=== PATIENT | female | born 1965 | race Caucasian/White ===

== ENCOUNTER 2022-01-18 23:28 | Emergency (ER) | payer SELFPAY ==
[2022-01-18 23:34] VITALS: BP 206/108; PULSE 111; RESP 20; TEMP 36.9; O2SAT 97; BMI 22.3
--- NOTE | 2022-01-18 23:50 | W.ED.ABDPA2 ---
Documented by User: WHITNEY Tracy 01/19/22 18:22 HPI - Abdominal Pain General: Chief Complaint: Abdominal Pain Stated Complaint: stomach pain Time Seen by Provider: 01/18/22 23:38 History of Present Illness: Patient is a 56-year-old female who comes to the ED with abdominal pain. Patient states that she has been having upper abdominal pain for the past couple months and is seen her physician and had an outpatient CT scan done and they told her she has a lesion on her liver. PCP is currently getting an outpatient MRI set up for patients abdomen. She reports for the past month she has been having nausea, decreased appetite and abdominal pain is located in the upper abdomen bilaterally. Today she began having pain in the left lower quadrant of her abdomen. Endorses having some nausea but denies any emesis. Reports occasional black stools over the past month. Reports taking Pepto-Bismol on occasion over the past month as well. Denies any constipation or diarrhea and has BMs daily. Patient was diagnosed with hepatitis C 15 years ago. Associated Symptoms: Reports change in stool character (Occasional black stool for the past month.) and nausea; Denies chills, constipation, diarrhea, dysuria, fever(s), hematochezia, hematuria and vomiting Review of Systems Const: Denies: fever(s), chills or fatigue Eyes: Denies: change in vision or eye discomfort ENMT: Denies: throat pain, odynophagia, nasal discharge or nasal congestion Card: Denies: chest pain, palpitations, edema, swelling of feet/ankles, dyspnea on exertion or orthopnea Resp: Denies: dyspnea, productive cough or non-productive cough GI: Reports: abdominal pain, nausea and change in stool character (Occasional black stool for the past month.); Denies: vomiting, diarrhea, constipation or hematochezia : Denies: flank pain, dysuria or hematuria Musc: Denies: neck pain, back pain or extremity swelling Skin/Breast: Denies: rash or new lesions Neuro: Denies: headache(s), numbness in extremities or weakness in extremities PFSH ED PFSH: Medical History Hepatitis C No pertinent family history Surgical History History of bowel resection Physical Exam Const: COMMON NORMALS: patient oriented x3 and alert GENERAL APPEARANCE: cooperative HENMT: COMMON NORMALS: normocephalic HEAD & SCALP: normocephalic MOUTH: Normal oral and palatal mucosa present THROAT: posterior oropharynx normal and uvula midline Neck/C-Spine: COMMON NORMALS: supple GENERAL: Yes normal visual inspection Resp: COMMON NORMALS: normal respiratory effort, No retractions, No use of accessory muscles and clear to auscultation bilaterally AUSCULTATION: clear to auscultation bilaterally Cardio: COMMON NORMALS: regular rate, regular rhythm, S1 normal heart sound present, S2 normal heart sound present, No gallops present (Cardio), No clicks present (Cardio), No murmurs present (Cardio) and Peripheral pulses 2+ throughout RATE: regular rate RHYTHM: regular rhythm HEART SOUNDS: S1 normal heart sound present and S2 normal heart sound present PERIPHERAL PULSES: Peripheral pulses 2+ throughout GI: COMMON NORMALS: Normal to inspection, nondistended, normoactive bowel sounds present, Soft to palpation and no masses PALPATION: Yes Soft to palpation and Yes Tenderness to palpation present (GI) Details: LLQ, LUQ and RUQ : COMMON NORMALS: Yes no CVA tenderness BLADDER/KIDNEY EXAM: Yes no CVA tenderness Back/Pelvis: COMMON NORMALS: no CVA tenderness Extremity: COMMON NORMALS: normal to inspection Neuro: COMMON NORMALS: patient oriented x3 SENSORIUM/ORIENTATION: Yes alert GAIT: Yes Normal gait present Skin: GENERAL SKIN EXAM: dry skin Course Vital Signs: Vital signs: Vital Signs Temperature 98.5 F 01/18/22 23:34 Pulse Rate 102 H 01/19/22 02:52 Respiratory Rate 18 01/19/22 02:52 Blood Pressure 172/87 01/19/22 02:52 Pulse Oximetry 97 01/19/22 02:52 Oxygen Delivery Me thod 01/18/22 23:34 MDM - Abdominal Pain Medical Decision Making Patient is a 56-year-old female who comes to the ED with abdominal pain. Abdominal pain is chronic and has been going on now for several months. She has a history of hepatitis C. She had a CT scan done over a month ago they found some lesions on her liver and she is currently in the process of getting further outpatient imaging done to better evaluate liver lesions. Vitals are stable. Exam of patient shows some generalized tenderness throughout her abdomen. She did not want any pain meds here in the ED. AST 243 and ALT was 138. The rest of CBC and CMP were unremarkable. Hepatitis panel done in patient was hep C antibody positive. CT of abdomen pelvis showed no small bowel obstruction. It showed cirrhotic appearing liver with some ascites and a few 1.1 cm hepatic hypodensity seen. Radiologist recommended reevaluation of liver lesions in 3 3 months with ultrasound or CT. Told patient about CT abdomen findings and recommended that she has another follow-up CT or ultrasound of the liver in the next 3 months. She was diagnosed with abdominal pain, hep C and liver lesions greater than 1 cm. I placed an order with case management for patient referred to Dr. Hurd for hepatitis C management. Return to ED precautions given. She was sent home with a prescription for Zofran to help with nausea. Follow-up with PCP within the next week for reevaluation. Patient understood agree with plan. Lab Data I reviewed the patient's lab results. 01/18/22 23:40 01/18/22 23:40 Labs/Radiology: Radiology Impressions Abdomen/Pelvis CT 01/19/22 00:01 IMPRESSION: 1. No small bowel obstruction, abscess or free air. 2. Markedly diseased appearing/cirrhotic liver with evidence of diffuse 3rd spacing of fluid. This includes mesenteric edema, slight ascites, and likely diffuse bowel wall thickening from mural edema. No strong evidence of colitis or diverticulitis at this time. 3. A few minute hepatic hypodensities are too small to characterize, up to 1.1 cm in size. These may not be simple cysts. These should be followed up in 3 months with ultrasound or CT. 4. Postop and numerous other chronic findings. COMMENTS: Consistent with the [employer]'s Incidental Findings Committee white paper (J Am William Radiol 2018): Any incidental renal lesion less than 1 cm or classified as too small to characterize, or any incidental cystic renal lesion characterized as simple-appearing, is likely benign. No follow-up imaging is recommended for these lesions per consensus recommendations based on imaging criteria. Laboratory Results WBC 5.4 10^3/uL (4.0-10.0) 01/18/22 23:40 RBC 3.98 10^6/uL (4.1-5.3) L 01/18/22 23:40 Hgb 13.5 g/dL (11.5-15.3) 01/18/22 23:40 Hct 40.1 % (37.0-47.0) 01/18/22 23:40 MCV 100.8 fl (81-99) H 01/18/22 23:40 MCH 33.9 pg (28.0-34.0) 01/18/22 23:40 MCHC 33.7 g/dL (30.0-36.0) 01/18/22 23:40 RDW 15.9 % (12.1-15.1) H 01/18/22 23:40 Plt Count 79 10^3/cmm (130-400) L 01/18/22 23:40 MPV 11.5 fL (7.4-10.4) H 01/18/22 23:40 Neut % (Auto) 65.5 % 01/18/22 23:40 Lymph % (Auto) 20.9 % 01/18/22 23:40 [place] % (Auto) 10.2 % 01/18/22 23:40 Eos % (Auto) 2.4 % 01/18/22 23:40 Baso % (Auto) 0.6 % 01/18/22 23:40 Neut # (Auto) 3.54 10^3/uL (1.8-7.7) 01/18/22 23:40 Lymph # (Auto) 1.1 10^3/uL (0.8-4.8) 01/18/22 23:40 [place] # (Auto) 0.6 10^3/uL (0.2-0.9) 01/18/22 23:40 Eos # (Auto) 0.1 10^3/uL (0.0-0.8) 01/18/22 23:40 Baso # (Auto) 0.0 10^3/uL (0.0-0.1) 01/18/22 23:40 Nucleated RBC % (auto) 0 % 01/18/22:40 Nucleated RBCs # 0.0 /100WBC 01/18/22 23:40 Sodium 131 mmol/L (136-145) L 01/18/22 23:40 Potassium 4.2 mmol/L (3.5-5.1) 01/18/22 23:40 Chloride 102 mmol/L (98-107) 01/18/22 23:40 Carbon Dioxide 21 mmol/L (22-29) L 01/18/22 23:40 Anion Gap 12.2 (5-19) 01/18/22 23:40 BUN 7 mg/dL (6-20) 01/18/22 23:40 Creatinine 0.5 mg/dL (0.5-0.9) 01/18/22 23:40 GFR Calculation 126.7 mL/min (90-130) 01/18/22 23:40 Glucose 101 mg/dL (65-115) 01/18/22 23:40 Calculated Osmolality 270 mOsm/kg (285-295) L 01/18/22 23:40 Lactic Acid 1.0 mmol/L (0.5-2.2) 01/18/22 23:40 Calcium 9.3 mg/dL (8.5-10.5) 01/18/22 23:40 Total Bilirubin 1.4 mg/dL (0.15-1.2) H 01/18/22 23:40 AST 243 U/L (0-32) H 01/18/22 23:40 ALT 138 U/L (0-33) H 01/18/22 23:40 Alkaline Phosphatase 195 U/L (35-105) H 01/18/22 23:40 Total Protein 9.2 g/dL (6.6-8.7) H 01/18/22 23:40 Albumin 3.4 g/dL (3.5-5.2) L 01/18/22 23:40 Globulin 5.8 g/dL (1.3-4.6) H 01/18/22 23:40 Lipase 66 U/L (13-60) H 01/18/22 23:40 Urine Color Yellow (Yellow) 01/19/22 00:03 Urine Appearance Clear (CLEAR) 01/19/22 00:03 Urine pH 7 (5-7) 01/19/22 00:03 Ur Specific [place] 1.010 (1.005-1.030) 01/19/22 00:03 Urine Protein Neg (Negative) 01/19/22 00:03 Urine Glucose (UA) Norm (Normal) 01/19/22 00:03 Urine Ketones Negative (Negative) 01/19/22 00:03 Urine Blood Neg (Negative) 01/19/22 00:03 Urine Nitrate Negative (Negative) 01/19/22 00:03 Urine Bilirubin Neg (Negative) 01/19/22 00:03 Urine Urobilinogen Neg mg/dL (Negative) 01/19/22 00:03 Ur Leukocyte Esterase Negative (Negative) 01/19/22 00:03 Hepatitis A IgM Ab Non-reactive (Nonreactive) 01/18/22 23:40 Hep Bs Antigen Non-reactive (Nonreactive) 01/18/22 23:40 Hep Bs Antibody 3.5 (11.5-1000) L 01/18/22 23:40 Hep B Core Total Ab Non-reactive (Nonreactive) 01/18/22 23:40 Hepatitis C Antibody Reactive (Nonreactive) H 01/18/22 23:40 Discharge Plan Discharge Patient Disposition: Home Clinical Impression: Lesion of liver greater than 1 cm in diameter, Hepatitis C antibody test positive Abdominal pain Qualifiers: Abdominal location: generalized Qualified Code(s): R10.84 - Generalized abdominal pain Condition: Stable Prescriptions: New ondansetron 4 mg tablet,disintegrating 4 mg PO Q8H PRN (Reason: nausea and vomiting) Qty: 20 0RF Discharge Orders: Discharge ED (Routine); Ordered 01/19/22 Ordered By: Pedro Hernandez Discharge Diet: Advance as tolerated Discharge Activity: Resume usual activity Patient Instructions: Abdominal Pain (ED) Activity Restrictions/Additional Instructions: Follow-up with medical provider as directed. Talk with your primary care physician to set up a follow-up CT scan or ultrasound in 3 months to recheck liver lesions. Case management should be contacted in the next several days to set up an appointment with specialist. Take medications as prescribed. Return to the ER or your medical provider if condition worsens. Please read and understand discharge instructions. Thank you for choosing [facility] for your healthcare needs today. Please realize this is an emergency room and that we are providing you with a medical screening exam and this may not be complete and all inclusive of all the testing and or work up that you may need to determine your ailment or severity of your illness. It is very important that you follow up as instructed or that you return to the Emergency Department should you have concerns or if your condition changes or worsens in any way. Coding Level of Care Code ED Printing Machine Operator for Chg Fwd Exam Comprehensive Documented by User: Jayme Higuera DO 01/19/22 18:37 HPI - Abdominal Pain General: Chief Complaint: Abdominal Pain Stated Complaint: stomach pain Time Seen by Provider: 01/18/22 23:38 PFSH ED PFSH: Medical History Hepatitis C No pertinent family history Surgical History History of bowel resection Course Vital Signs: Vital signs: Vital Signs Temperature 98.5 F 01/18/22 23:34 Pulse Rate 102 H 01/19/22 02:52 Respiratory Rate 18 01/19/22 02:52 Blood Pressure 172/87 01/19/22 02:52 Pulse Oximetry 97 01/19/22 02:52 Oxygen Delivery Me thod 01/18/22 23:34 MDM - Abdominal Pain Medical Decision Making Patient is a 56-year-old female who comes to the ED with abdominal pain. Abdominal pain is chronic and has been going on now for several months. She has a history of hepatitis C. She had a CT scan done over a month ago they found some lesions on her liver and she is currently in the process of getting further outpatient imaging done to better evaluate liver lesions. Vitals are stable. Exam of patient shows some generalized tenderness throughout her abdomen. She did not want any pain meds here in the ED. AST 243 and ALT was 138. The rest of CBC and CMP were unremarkable. Hepatitis panel done in patient was hep C antibody positive. CT of abdomen pelvis showed no small bowel obstruction. It showed cirrhotic appearing liver with some ascites and a few 1.1 cm hepatic hypodensity seen. Radiologist recommended reevaluation of liver lesions in 3 3 months with ultrasound or CT. Told patient about CT abdomen findings and recommended that she has another follow-up CT or ultrasound of the liver in the next 3 months. She was diagnosed with abdominal pain, hep C and liver lesions greater than 1 cm. I placed an order with case management for patient referred to Dr. Hurd for hepatitis C management. Return to ED precautions given. She was sent home with a prescription for Zofran to help with nausea. Follow-up with PCP within the next week for reevaluation. Patient understood agree with plan. This patient was originally seen by Mr. Mary PA-C.? I agree with his history, evaluation, and treatment. Lab Data 01/18/22 23:40 12 23:40 Labs/Radiology: Radiology Impressions Abdomen/Pelvis CT 01/19/22 00:01 IMPRESSION: 1. No small bowel obstruction, abscess or free air. 2. Markedly diseased appearing/cirrhotic liver with evidence of diffuse 3rd spacing of fluid. This includes mesenteric edema, slight ascites, and likely diffuse bowel wall thickening from mural edema. No strong evidence of colitis or diverticulitis at this time. 3. A few minute hepatic hypodensities are too small to characterize, up to 1.1 cm in size. These may not be simple cysts. These should be followed up in 3 months with ultrasound or CT. 4. Postop and numerous other chronic findings. COMMENTS: Consistent with the [employer]'s Incidental Findings Committee white paper (J Am William Radiol 2018): Any incidental renal lesion less than 1 cm or classified as too small to characterize, or any incidental cystic renal lesion characterized as simple-appearing, is likely benign. No follow-up imaging is recommended for these lesions per consensus recommendations based on imaging criteria. Laboratory Results WBC 5.4 10^3/uL (4.0-10.0) 01/18/22 23:40 RBC 3.98 10^6/uL (4.1-5.3) L 01/18/22 23:40 Hgb 13.5 g/dL (11.5-15.3) 01/18/22 23:40 Hct 40.1 % (37.0-47.0) 01/18/22 23:40 MCV 100.8 fl (81-99) H 01/18/22 23:40 MCH 33.9 pg (28.0-34.0) 01/18/22 23:40 MCHC 33.7 g/dL (30.0-36.0) 01/18/22 23:40 RDW 15.9 % (12.1-15.1) H 01/18/22 23:40 Plt Count 79 10^3/cmm (130-400) L 01/18/22 23:40 MPV 11.5 fL (7.4-10.4) H 01/18/22 23:40 Neut % (Auto) 65.5 % 01/18/22 23:40 Lymph % (Auto) 20.9 % 01/18/22 23:40 [place] % (Auto) 10.2 % 01/18/22 23:40 Eos % (Auto) 2.4 % 01/18/22 23:40 Baso % (Auto) 0.6 % 01/18/22 23:40 Neut # (Auto) 3.54 10^3/uL (1.8-7.7) 01/18/22 23:40 Lymph # (Auto) 1.1 10^3/uL (0.8-4.8) 01/18/22 23:40 [place] # (Auto) 0.6 10^3/uL (0.2-0.9) 01/18/22 23:40 Eos # (Auto) 0.1 10^3/uL (0.0-0.8) 01/18/22 23:40 Baso # (Auto) 0.0 10^3/uL (0.0-0.1) 01/18/22 23:40 Nucleated RBC % (auto) 0 % 01/18/22 23:40 Nucleated RBCs # 0.0 /100WBC 01/18/22 23:40 Sodium 131 mmol/L (136-145) L 01/18/22 23:40 Potassium 4.2 mmol/L (3.5-5.1) 01/18/22 23:40 Chloride 102 mmol/L (98-107) 01/18/22 23:40 Carbon Dioxide 21 mmol/L (22-29) L 01/18/22 23:40 Anion Gap 12.2 (5-19) 01/18/22 23:40 BUN 7 mg/dL (6-20) 01/18/22 23:40 Creatinine 0.5 mg/dL (0.5-0.9) 01/18/22 23:40 GFR Calculation 126.7 mL/min (90-130) 01/18/22 23:40 Glucose 101 mg/dL (65-115) 01/18/22 23:40 Calculated Osmolality 270 mOsm/kg (285-295) L 01/18/22 23:40 Lactic Acid 1.0 mmol/L (0.5-2.2) 01/18/22 23:40 Calcium 9.3 mg/dL (8.5-10.5) 01/18/22 23:40 Total Bilirubin 1.4 mg/dL (0.15-1.2) H 01/18/22 23:40 AST 243 U/L (0-32) H 01/18/22 23:40 ALT 138 U/L (0-33) H 01/18/22 23:40 Alkaline Phosphatase 195 U/L (35-105) H 01/18/22 23:40 Total Protein 9.2 g/dL (6.6-8.7) H 01/18/22 23:40 Albumin 3.4 g/dL (3.5-5.2) L 01/18/22 23:40 Globulin 5.8 g/dL (1.3-4.6) H 01/18/22 23:40 Lipase 66 U/L (13-60) H 01/18/22 23:40 Urine Color Yellow (Yellow) 01/19/22 00:03 Urine Appearance Clear (CLEAR) 01/19/22 00:03 Urine pH 7 (5-7) 01/19/22 00:03 Ur Specific [place] 1.010 (1.005-1.030) 01/19/22 00:03 Urine Protein Neg (Negative) 01/19/22 00:03 Urine Glucose (UA) Norm (Normal) 01/19/22 00:03 Urine Ketones Negative (Negative) 01/19/22 00:03 Urine Blood Neg (Negative) 01/19/22 00:03 Urine Nitrate Negative (Negative) 01/19/22 00:03 Urine Bilirubin Neg (Negative) 01/19/22 00:03 Urine Urobilinogen Neg mg/dL (Negative) 01/19/22 00:03 Ur Leukocyte Esterase Negative (Negative) 01/19/22 00:03 Hepatitis A IgM Ab Non-reactive (Nonreactive) 01/18/22 23:40 Hep Bs Antigen Non-reactive (Nonreactive) 01/18/22:40 Hep Bs Antibody 3.5 (11.5-1000) L 01/18/22 23:40 Hep B Core Total Ab Non-reactive (Nonreactive) 01/18/22 23:40 Hepatitis C Antibody Reactive (Nonreactive) H 01/18/22 23:40 Discharge Plan Discharge Patient Disposition: Home Clinical Impression: Lesion of liver greater than 1 cm in diameter, Hepatitis C antibody test positive Abdominal pain Qualifiers: Abdominal location: generalized Qualified Code(s): R10.84 - Generalized abdominal pain Condition: Stable Prescriptions: New ondansetron 4 mg tablet,disintegrating 4 mg PO Q8H PRN (Reason: nausea and vomiting) Qty: 20 0RF Discharge Orders: Discharge ED (Routine); Ordered 01/19/22 Ordered By: Pedro Hernandez Discharge Diet: Advance as tolerated Discharge Activity: Resume usual activity Patient Instructions: Abdominal Pain (ED) Activity Restrictions/Additional Instructions: Follow-up with medical provider as directed. Talk with your primary care physician to set up a follow-up CT scan or ultrasound in 3 months to recheck liver lesions. Case management should be contacted in the next several days to set up an appointment with specialist. Take medications as prescribed. Return to the ER or your medical provider if condition worsens. Please read and understand discharge instructions. Thank you for choosing [facility] for your healthcare needs today. Please realize this is an emergency room and that we are providing you with a medical screening exam and this may not be complete and all inclusive of all the testing and or work up that you may need to determine your ailment or severity of your illness. It is very important that you follow up as instructed or that you return to the Emergency Department should you have concerns or if your condition changes or worsens in any way. Coding Level of Care Code ED Printing Machine Operator for Yue Lora Exam Comprehensive
[2022-01-18 23:58] LABS: Basophils % 0.6 %; Eosinophils # 0.1 10^3/uL (0.0-0.8); Eosinophils % 2.4 %; Hematocrit 40.1 % (37.0-47.0); Hemoglobin 13.5 g/dL (11.5-15.3); Lymphocytes # 1.1 10^3/uL (0.8-4.8); Lymphocytes % 20.9 %; Mean Corpuscular HGB Conc 33.7 g/dL (30.0-36.0); Mean Corpuscular Hemoglobin 33.9 pg (28.0-34.0); Mean Corpuscular Volume 100.8 fl (81-99); Mean Platelet Volume 11.5 fL (7.4-10.4); Monocytes # 0.6 10^3/uL (0.2-0.9); Monocytes % 10.2 %; Neutrophils # 3.54 10^3/uL (1.8-7.7); Neutrophils % 65.5 %; Nucleated Red Blood Cells % 0 %; Platelet Count 79 10^3/cmm (130-400); Red Blood Count 3.98 10^6/uL (4.1-5.3); Red Cell Distribution Width 15.9 % (12.1-15.1); White Blood Count 5.4 10^3/uL (4.0-10.0)
--- NOTE | 2022-01-19 00:01 | CTR_ITS ---
PROCEDURE INFORMATION: Exam: CT Abdomen And Pelvis With Contrast Exam date and time: 01/19/2022 12:09 AM Age: 56 years old Clinical indication: Abdominal pain; Additional info: Upper and llq abdominal pain w/ nausea TECHNIQUE: Imaging protocol: Computed tomography of the abdomen and pelvis with contrast. Radiation optimization: All CT scans at this facility use at least one of these dose optimization techniques: automated exposure control; mA and/or kV adjustment per patient size (includes targeted exams where dose is matched to clinical indication); or iterative reconstruction. Contrast material: OMNIPAQUE 350; Contrast volume: 100 ml; Contrast route: INTRAVENOUS (IV); COMPARISON: CT abdomen pelvis w con* [id number] 02/05/2015 6:22 PM RADIATION DOSE METRICS: Total DLP (mGy-cm): 346.32 FINDINGS: Lungs: The visualized lung bases are clear. Diaphragm: Minute hiatal hernia. Liver: The liver is large, cirrhotic, and very fatty replaced. It is quite heterogenous. It contains a few small hypodense foci up to about 1.1 cm in size. These should be followed up. These are new from 02/05/2015. Gallbladder and bile ducts: No calcified gallstones or biliary dilation identified. Pancreas: Unremarkable with no suspicious mass. No ductal dilation. Spleen: The spleen is not enlarged. No suspicious enhancing mass is noted. Adrenal glands: Normal. No mass. Kidneys and ureters: The right kidney shows a few tiny cysts up to about 10 mm. Stomach and bowel: Right lower quadrant bowel postop changes. No small bowel obstruction, abscess or free air. Appendix: No evidence of appendicitis. Intraperitoneal space: Small pelvic free fluid. Mild diffuse mesenteric edema is present with some mesenteric vascular engorgement. Abdominal varices are visualized. Vasculature: Severe diffuse atherosclerotic calcification. Diffuse varices in the abdomen and pelvis. Lymph nodes: No enlarged lymph nodes. Urinary bladder: Unremarkable as visualized. Reproductive: A few calcified uterine fibroids measure up to about 1 cm. Bones/joints: Slight mid lumbar dextroscoliosis. Advanced L5-S1 DDD. Soft tissues: No acute or suspicious finding noted. CT/CT abdomen pelvis w con* [id number] IMPRESSION: 1. No small bowel obstruction, abscess or free air. 2. Markedly diseased appearing/cirrhotic liver with evidence of diffuse 3rd spacing of fluid. This includes mesenteric edema, slight ascites, and likely diffuse bowel wall thickening from mural edema. No strong evidence of colitis or diverticulitis at this time. 3. A few minute hepatic hypodensities are too small to characterize, up to 1.1 cm in size. These may not be simple cysts. These should be followed up in 3 months with ultrasound or CT. 4. Postop and numerous other chronic findings. COMMENTS: Consistent with the [employer]'s Incidental Findings Committee white paper (J Am William Radiol 2018): Any incidental renal lesion less than 1 cm or classified as too small to characterize, or any incidental cystic renal lesion characterized as simple-appearing, is likely benign. No follow-up imaging is recommended for these lesions per consensus recommendations based on imaging criteria.
[2022-01-19] MEDS: sodium chloride 0.9% 500 ML 999 ML IV (00:09)
[2022-01-19] MEDS: iohexol 350 mg/mL 500 mL Btl (per mL) IV (00:10)
[2022-01-19 00:11] LABS: Add Urine Microscopic? NO; Charge for UA Resulting for Rev
[2022-01-19 00:12] LABS: Alanine Aminotransferase 138 U/L (0-33); Albumin Level 3.4 g/dL (3.5-5.2); Alkaline Phosphatase 195 U/L (35-105); Anion Gap 12.2 (5-19); Aspartate Amino Transferase 243 U/L (0-32); Blood Urea Nitrogen 7 mg/dL (6-20); Calcium 9.3 mg/dL (8.5-10.5); Carbon Dioxide 21 mmol/L (22-29); Chloride 102 mmol/L (98-107); Globulin 5.8 g/dL (1.3-4.6); Glomerular Filtration Rate 126.7 mL/min (90-130); Glucose 101 mg/dL (65-115); Lipase 66 U/L (13-60); Osmolality Calculated 270 mOsm/kg (285-295); Potassium 4.2 mmol/L (3.5-5.1); Sodium 131 mmol/L (136-145); Total Bilirubin 1.4 mg/dL (0.15-1.2); Total Protein 9.2 g/dL (6.6-8.7)
[2022-01-19 00:21] LABS: Bilirubin Urine Neg (Negative); Blood Urine Neg (Negative); Glucose Urine UA Norm (Normal); Ketones Urine Negative (Negative); Leukocyte Esterase Urine Negative (Negative); Nitrate Urine Negative (Negative); Protein Urine Neg (Negative); Urine Appearance Clear (CLEAR); Urine Color Yellow (Yellow); Urobilinogen Urine Neg (Negative); pH Urine 7 (5-7)
[2022-01-19] MEDS: hyDRALAzine 25 mg Tablet PO (01:44)
[2022-01-19 01:52] LABS: Hepatitis A Antibody IgM Non-Reactive (Nonreactive); Hepatitis B Core AB, Total Non-Reactive (Nonreactive); Hepatitis B Surface AB 3.5 (11.5-1000); Hepatitis B Surface Antigen Non-Reactive (Nonreactive)
[2022-01-19 02:46] LABS: Hepatitis C Virus Antibody Reactive (Nonreactive)
[2022-01-19 02:52] VITALS: BP 172/87; PULSE 102; RESP 18; O2SAT 97
--- NOTE | 2022-01-20 13:11 | DCPLANNER ---
clinical quality manager had message to refer patient to Dr. Hurd, he no longer works for [employer]. The physician has opened up his own clinic, high risk case manager offered to refer patient to his clinic in [facility]. Patient stated that she would follow up with her primary care physician.
[2022-01-21 22:30] LABS: HEP C RNA Viral Load Quant 208000 IU/mL (NOT DETECTED); HEP C RNA Viral Load Quant 5.32 Log IU/mL (NOT DETECTED)
== END 2022-01-19 02:54 | disposition home or self-care (01) ==
PROVIDERS: Emergency Provider Physician Assistant
DX: R10.84 Generalized abdominal pain (principal); K76.9 Liver disease, unspecified; B19.20 Unspecified viral hepatitis C without hepatic coma
CPT/HCPCS: 74177; 80053; 81003; 83605; 83690; 85025; 86705; 86706; 86709; 86803; 87340; 87522; 96360; 96361; 99285; J7040; Q9967

== ENCOUNTER 2023-06-12 14:35 | Emergency (ER) | payer BC, MEDICAID, SELFPAY ==
[2023-06-12] VITALS (10 sets, daily range): BP systolic 125–151; BP diastolic 80–108; PULSE 66–103; RESP 16–17; TEMP 36.7; O2SAT 92–97; BMI 23.0
--- NOTE | 2023-06-12 14:58 | XRR_ITS ---
PROCEDURE INFORMATION: Exam: XR Chest Exam date and time: 06/12/2023 7:54 PM Age: 58 years old Clinical indication: Shortness of breath; Patient HX: SOB; Fluid retention; Cirrohsis TECHNIQUE: Imaging protocol: Radiologic exam of the chest. Views: 1 view. COMPARISON: CR XR chest 1V [id number] 02/27/2017 3:59 PM FINDINGS: Lungs: Unremarkable. No consolidation. Pleural spaces: Unremarkable. No pleural effusion. No pneumothorax. Heart/Mediastinum: Unremarkable. No cardiomegaly. Bones/joints: Unremarkable. XR/XR chest 1V portable [id number] IMPRESSION: No acute findings.
[2023-06-12 15:33] LABS: Basophils % 0.4 %; Eosinophils % 0.5 %; Hematocrit 36.7 % (36-47); Lymphocytes # 1.1 10^3/uL (0.8-4.8); Mean Corpuscular HGB Conc 34.1 g/dL (30-55); Mean Corpuscular Hemoglobin 32.7 pg (27-33); Mean Corpuscular Volume 96.1 fl (85-98); Monocytes # 0.6 10^3/uL (0.2-0.9); Monocytes % 7.7 %; Neutrophils # 5.64 10^3/uL (1.8-7.7); Neutrophils % 76.1 %; Nucleated Red Blood Cells % 0 %; Platelet Count 143 10^3/cmm (157-399); Red Blood Count 3.82 10^6/uL (3.85-5.65); Red Cell Distribution Width 17.8 % (12.1-15.1); White Blood Count 7.41 10^3/uL (3.29-11.43)
[2023-06-12 15:55] LABS: Alanine Aminotransferase 47 U/L (0-33); Alkaline Phosphatase 122 U/L (35-105); Anion Gap 12.8 (5-19); Aspartate Amino Transferase 73 U/L (0-32); Blood Urea Nitrogen 10 mg/dL (8-23); Calcium 8.7 mg/dL (8.5-10.5); Carbon Dioxide 22 mmol/L (22-29); Chloride 104 mmol/L (98-107); Globulin 5.3 g/dL (1.3-4.6); Glomerular Filtration Rate 73.2 mL/min (90-130); Glucose 110 mg/dL (65-115); Osmolality Calculated 278 mOsm/kg (285-295); Potassium 4.8 mmol/L (3.5-5.1); Sodium 134 mmol/L (136-145); Total Bilirubin 1.3 mg/dL (0.15-1.2); Total Protein 8.3 g/dL (6.6-8.7)
--- NOTE | 2023-06-12 18:41 | ED_ITS ---
HPI - Abdominal Pain 2 General: Chief Complaint: Abdominal Pain Stated Complaint: fluid build up Time Seen by Provider: 06/12/23 18:36 History of Present Illness: Patient presents to the ER with complaints of abdominal pain for a while but worsening over the last 2 to 3 days. Patient had a therapeutic paracentesis done at [facility] 2 days ago and she which she thought would help with the abdominal pain but has not. Patient has had diarrhea over the last 12 hours. As well as nausea and vomiting. Patient's pain is in the upper quadrants of the abdomen. Patient said the fluid did not look infected per the doctor doing the procedure. Patient has no pain medicine at home. Patient has a history of cirrhosis of the liver and hepatitis C, Review of Systems 2 General: Reports: 10 or more systems reviewed and unremarkable except in HPI and below PFSH ED 2 PFSH: Medical History Hepatitis C No pertinent family history Surgical History History of bowel resection Physical Exam 2 Const: COMMON NORMALS: no acute distress, average body habitus, patient oriented x3, no limitations, healthy appearing, alert and well nourished HENMT: COMMON NORMALS: normocephalic, atraumatic, hearing grossly normal bilaterally, Normal external nose present, moist oral mucous membranes and oropharynx normal HEAD & SCALP: normocephalic and atraumatic NOSE: Normal external nose present Neck/C-Spine: COMMON NORMALS: no JVD Chest: COMMONS NORMALS: normal inspection of the chest and normal palpation of entire chest wall Resp: COMMON NORMALS: normal respiratory effort, No retractions, No use of accessory muscles and clear to auscultation bilaterally AUSCULTATION: clear to auscultation bilaterally Cardio: COMMON NORMALS: no JVD, regular rate, regular rhythm, S1 normal heart sound present, S2 normal heart sound present, No gallops present (Cardio), No clicks present (Cardio), No murmurs present (Cardio) and No rub (Cardio) R ATE: regular rate RHYTHM: regular rhythm HEART SOUNDS: S1 normal heart sound present and S2 normal heart sound present GI: OTHER: Firm to palpate, tender over upper quadrants bilaterally, good bowel sounds present in all 4 quadrants, Neuro: COMMON NORMALS: patient oriented x3 SENSORIUM/ORIENTATION: Yes alert Course 2 Vital Signs: Vital signs: Vital Signs Temperature 98.1 F 06/12/23 14:53 Pulse Rate 103 H 06/12/23 18:38 Respiratory Rate 16 06/12/23 21:05 Blood Pressure 143/108 06/12/23 18:38 Pulse Oximetry 92 06/12/23 18:38 Oxygen Delivery Me thod Room Air 06/12/23 18:38 MDM - Abdominal Pain Medical Decision Making Lab work was obtained WBC 7.4, hemoglobin 12.5, hematocrit 36.7, metabolic panel benign except AST 73 ALT 47 alk phos 122, lipase 33, patient was given 60 mg of Toradol, 8 mg of morphine, 5 mg of oxycodone for pain control. Patient will be sent home with oxycodone 5 mg for pain control. Patient states that [facility] is working on setting her up with interventional radiology here to have her abdomen drained routinely. Patient be given 2 oxycodone fives to go home with until she can pick the others up at the pharmacy tomorrow. Differential Diagnosis Likely abdominal pain; Unlikely acute appendicitis, calculus of kidney, constipation, diverticulitis, endometriosis, gastroenteritis, pancreatitis or small bowel obstruction Medical Records I reviewed the patient's medical records. Lab Data I reviewed the patient's lab results. 06/12/23 15:21 06/12/23 15:21 Labs/Radiology: Radiology Impressions Chest X-Ray 06/12/23 14:58 IMPRESSION: No acute findings. Laboratory Results WBC 7.41 10^3/uL (3.29-11.43) 06/12/23 15:21 RBC 3.82 10^6/uL (3.85-5.65) L 06/12/23 15:21 Hgb 12.50 g/dL (11.27-16.99) 06/12/23 15:21 Hct 36.7 % (36-47) 06/12/23 15:21 MCV 96.1 fl (85-98) 06/12/23 15:21 MCH 32.7 pg (27-33) 06/12/23 15:21 MCHC 34.1 g/dL (30-55) 06/12/23 15:21 RDW 17.8 % (12.1-15.1) H 06/12/23 15:21 Plt Count 143 10^3/cmm (157-399) L 06/12/23 15:21 MPV 9.0 fL (7.4-10.4) 06/12/23 15:21 Neut % (Auto) 76.1 % 06/12/23 15:21 Lymph % (Auto) 15.0 % 06/12/23 15:21 Faulk % (Auto) 7.7 % 06/12/23 15:21 Eos % (Auto) 0.5 % 06/12/23 15:21 Baso % (Auto) 0.4 % 06/12/23 15:21 Neut # (Auto) 5.64 10^3/uL (1.8-7.7) 06/12/23 15:21 Lymph # (Auto) 1.1 10^3/uL (0.8-4.8) 06/12/23 15:21 Faulk # (Auto) 0.6 10^3/uL (0.2-0.9) 06/12/23 15:21 Eos # (Auto) 0.0 10^3/uL (0.0-0.8) 06/12/23 15:21 Baso # (Auto) 0.0 10^3/uL (0.0-0.1) 06/12/23 15:21 Nucleated RBC % (auto) 0 % 06/12/23 15:21 Nucleated RBCs # 0.0 /100WBC 06/12/23 15:21 Sodium 134 mmol/L (136-145) L 06/12/23 15:21 Potassium 4.8 mmol/L (3.5-5.1) 06/12/23 15:21 Chloride 104 mmol/L (98-107) 06/12/23 15:21 Carbon Dioxide 22 mmol/L (22-29) 06/12/23 15:21 Anion Gap 12.8 (5-19) 06/12/23 15:21 BUN 10 mg/dL (8-23) 06/12/23 15:21 Creatinine 0.8 mg/dL (0.5-0.9) 06/12/23 15:21 GFR Calculation 73.2 mL/min (90-130) L 06/12/23 15:21 Glucose 110 mg/dL (65-115) 06/12/23 15:21 Calculated Osmolality 278 mOsm/kg (285-295) L 06/12/23 15:21 Calcium 8.7 mg/dL (8.5-10.5) 06/12/23 15:21 Magnesium 2.2 mg/dL (1.7-2.3) 06/12/23 15:21 Total Bilirubin 1.3 mg/dL (0.15-1.2) H 06/12/23 15:21 AST 73 U/L (0-32) H 06/12/23 15:21 ALT 47 U/L (0-33) H 06/12/23 15:21 Alkaline Phosphatase 122 U/L (35-105) H 06/12/23 15:21 Total Protein 8.3 g/dL (6.6-8.7) 06/12/23 15:21 Albumin 3.0 g/dL (3.5-5.2) L 06/12/23 15:21 Globulin 5.3 g/dL (1.3-4.6) H 06/12/23 15:21 Lipase 33 U/L (13-60) 06/12/23 15:21 All radiology interpretation(s) finalized by discharge Discharge Plan Discharge Patient Disposition: Home Clinical Impression: Gastroenteritis Abdominal pain Qualifiers: Abdominal location: generalized Qualified Code(s): R10.84 - Generalized abdominal pain Abdominal ascites Qualifiers: Ascites type: other type Qualified Code(s): R18.8 - Other ascites Condition: Stable Prescriptions: New oxycodone 5 mg tablet 5 mg PO TID PRN (Reason: pain) Qty: 14 0RF ondansetron HCl 4 mg tablet 4 mg PO Q8H PRN (Reason: nausea and vomiting) Qty: 14 0RF No Action ondansetron 4 mg tablet,disintegrating 4 mg PO Q8H PRN (Reason: nausea and vomiting) Qty: 20 0RF Discharge Orders: Discharge ED (Routine); Ordered 06/12/23 Ordered By: Checo Mendoza Referrals: Vladimir Urena [Primary Care Provider] - 1 week Patient Instructions: Ascites, Gastroenteritis (ED), Abdominal Pain (ED) Activity Restrictions/Additional Instructions: Please take your medicine as directed for pain. Please make for sure you get a follow-u to have your abdomen drained sometime next week. If your symptoms worsen or return please feel free to return to the ER. 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
[2023-06-12] MEDS: ondansetron 4 MG Tablet PO (18:51)
[2023-06-12] MEDS: ketorolac 60 mg/2 mL INJ IM (18:51)
[2023-06-12 19:06] LABS: Lipase 33 U/L (13-60); Magnesium 2.2 mg/dL (1.7-2.3)
[2023-06-12] MEDS: oxyCODONE 5 mg IR Tab/Cap PO (20:59)
[2023-06-12] MEDS: morphine 4 mg/mL SDV 1 mL IM (21:05)
== END 2023-06-12 22:05 | disposition home or self-care (01) ==
PROVIDERS: Physician Assistant; Emergency Provider Emergency Medicine; PCP Family Medicine
DX: K52.9 Noninfective gastroenteritis and colitis, unspecified (principal); R18.8 Other ascites; R10.84 Generalized abdominal pain; Z86.19 Personal history of other infectious and parasitic diseases
CPT/HCPCS: 36415; 71045; 80053; 83690; 83735; 85025; 96372; 99284; J1885; J2270; Q0162

== ENCOUNTER → 2023-06-18 12:00 | Day surgery (SDC) | payer BC, MEDICAID, SELFPAY ==
--- NOTE | 2023-06-18 12:24 | US_ITS ---
WS: [email or web address] ULTRASOUND-GUIDED PARACENTESIS CLINICAL INFORMATION: ascities COMPARISON: None. Procedure Informed consent: The risks, benefits, and alternatives of the procedure were discussed with the chele ent. Verbal and written consent was obtained. Timeout: A timeout was performed to confirm the correct patient, procedure, and site. Preparation: A suitable skin site was identified. The patient was prepped and draped in usual sterile fashion. Lidocaine 1% was used for local anesthesia. Catheter: 4 Bulgarian One-step Yueh catheter. Side: RIGHT lower quadrant. Fluid Volume: 6500 ml Color: Yellow DISPOSITION: 50 cc sent to the laboratory for requested diagnostic test. Complications: None. Patient disposition: Discharged from the department in stable condition. US/US paracentesis abd w [id number] IMPRESSION: Uncomplicated ultrasound-guided paracentesis. Removal of 6500 cc
[2023-06-18 12:33] VITALS: BP 140/87; PULSE 82; RESP 18; TEMP 36.4; O2SAT 99
[2023-06-18 13:55] LABS: Apprearance, Body Fluid CLOUDY; Color, Body Fluid YELLOW; PATH Referral YES
[2023-06-18 13:56] LABS: Body Fluid Polynuclear #Cells 0.024; Body Fluid WBC 180 /uL; Fluid Laterality PERITONEAL FLUID; Monocytes # Body Fluid 0.156; RBC, Body Fluid 0 10^3/uL
[2023-06-18 13:58] LABS: Cyto Order Verification Order Verified
[2023-06-18] MEDS: albumin 50 G/200 ML BAG 60 G IV (14:11)
[2023-06-18 14:26] VITALS: BMI 24.6
[2023-06-18 14:30] LABS: Albumin Body Fluid 0.8 g/dL; Total Protein Body Fluid 1.7 g/dL
== END ==
LOC: GILAB 12:01
PROVIDERS: Radiology Neuroradiology; PCP Family Medicine; Visit Provider Nurse Practitioner Family
PROC: (CPT 49082; principal; 2023-06-18 13:00)
DX: R18.8 Other ascites (principal)
CPT/HCPCS: 49083; 80503; 82042; 84157; 87070; 87075; 87205; 88112; 89050; 96365; P9046

== ENCOUNTER 2023-06-24 09:12 | Day surgery (SDC) | payer BC, MEDICAID, SELFPAY ==
[2023-06-24 09:20] VITALS: BP 123/80; PULSE 86; RESP 18; TEMP 36.4; O2SAT 98
--- NOTE | 2023-06-24 09:54 | US_ITS ---
WS: [email or web address] ULTRASOUND-GUIDED THERAPEUTIC AND DIAGNOSTIC PARACENTESIS Procedure, risks, and complications have been explained to the patient. Consent is obtained. Utilizing aseptic technique and 1% buffered lidocaine, a small dermatome was made through which a 5 F rench Yueh catheter was inserted. Approximately 5700 ml of clear peritoneal fluid was obtained witho ut difficulty. No complications encountered. Ascites collected for analysis as requested. US/US paracentesis abd w [id number] IMPRESSION: Uncomplicated paracentesis yielding 5700 ml of peritoneal fluid.
[2023-06-24 10:14] VITALS: BMI 24.6
[2023-06-24] MEDS: albumin 50 G/200 ML BAG 60 G IV (10:54)
[2023-06-24 11:03] LABS: Cyto Order Verification Order Verified
[2023-06-24 11:06] LABS: Body Fluid Polynuclear #Cells 0.037; Body Fluid WBC 176 /uL; Monocytes # Body Fluid 0.139; Mononuclear %, Pleural Fluid 79 %; Polynuclear Cells, Pleural % 21 %; RBC, Body Fluid 0 10^3/uL
[2023-06-24 11:20] LABS: Apprearance, Body Fluid CLOUDY; Color, Body Fluid PALE YELLOW; PATH Referal YES
[2023-06-24 11:21] LABS: Fluid Laterality PERITONEAL FLUID
[2023-06-24 11:46] LABS: Albumin Body Fluid 0.9 g/dL; Total Protein Body Fluid 1.7 g/dL
== END 2023-06-24 11:19 | disposition home or self-care (01) ==
LOC: GILAB 09:12
PROVIDERS: Radiology Diagnostic Radiology; PCP Family Medicine; Visit Provider Nurse Practitioner Family
PROC: (CPT 49082; principal; 2023-06-24 13:00)
DX: R18.8 Other ascites (principal)
CPT/HCPCS: 49083; 80503; 82042; 84157; 87070; 87075; 87205; 88112; 89050; 96365; P9046

== ENCOUNTER 2023-07-02 12:26 | Day surgery (SDC) | payer BC, MEDICAID, SELFPAY ==
--- NOTE | 2023-07-02 12:30 | US_ITS ---
WS: [email or web address] ULTRASOUND-GUIDED PARACENTESIS CLINICAL INFORMATION: ascities COMPARISON: None. Procedure Informed consent: The risks, benefits, and alternatives of the procedure were discussed with the chele ent. Verbal and written consent was obtained. Timeout: A timeout was performed to confirm the correct patient, procedure, and site. Preparation: A suitable skin site was identified. The patient was prepped and draped in usual sterile fashion. Lidocaine 1% was used for local anesthesia. Catheter: 4 Kinyarwanda One-step Yueh catheter. Side: RIGHT Lower quadrant. Fluid Volume: 4200 ml Color: YELLOW DISPOSITION: Discarded safely. Complications: None. Patient disposition: Discharged from the department in stable condition. US/US paracentesis abd w [id number] IMPRESSION: Uncomplicated ultrasound-guided paracentesis. Removal of 4200cc
[2023-07-02 12:46] VITALS: BP 136/78; PULSE 78; RESP 16; TEMP 36.1; O2SAT 98
[2023-07-02 15:30] LABS: Mononuclear %, Pleural Fluid 81 %; Polynuclear Cells, Pleural % 19 %
[2023-07-02 15:37] LABS: Total Protein Body Fluid 1.9 g/dL
[2023-07-02 16:19] LABS: Appearance, Pleural Fluid CLOUDY (CLEAR); Color, Pleural Fluid Pale Yellow (Pale Yellow); Cyto Order Verification Order Verified
[2023-07-02 16:20] LABS: PATH Referal YES
== END 2023-07-02 14:43 | disposition home or self-care (01) ==
PROVIDERS: Radiology Neuroradiology; PCP Family Medicine; Visit Provider Nurse Practitioner Family
PROC: (CPT 49082; principal; 2023-07-02 13:30)
DX: R18.8 Other ascites (principal)
CPT/HCPCS: 49083; 80503; 82042; 84157; 87070; 87075; 87205; 88112; 89050

== ENCOUNTER 2023-07-09 11:51 | Day surgery (SDC) | payer BC, MEDICAID, SELFPAY ==
[2023-07-09 12:17] VITALS: BP 126/69; PULSE 80; RESP 16; TEMP 36.3; O2SAT 96
[2023-07-09 12:22] VITALS: BMI 19.7
--- NOTE | 2023-07-09 12:25 | US_ITS ---
WS: [email or web address] ULTRASOUND-GUIDED THERAPEUTIC AND DIAGNOSTIC PARACENTESIS Procedure, risks, and complications have been explained to the patient. Consent is obtained. Utilizing aseptic technique and 1% buffered lidocaine, a small dermatome was made through which a 5 F rench Yueh catheter was inserted. Approximately 4600 ml of clear peritoneal fluid was obtained witho ut difficulty. No complications encountered. Fluid specimen collected for analysis as requested. US/US paracentesis abd w [id number] IMPRESSION: Uncomplicated paracentesis yielding 4600 ml of peritoneal fluid.
[2023-07-09 14:10] LABS: Mononuclear #, Pertinoneal Fl 0.144 10^3/uL; Polynuclear # Cells, Perit 0.035 10^3/uL; RBC Pertioneal Fluid 0 10^3/uL; WBC Peritoneal Fluid 179 /uL
[2023-07-09 14:12] LABS: Appearance, Peritoneal Fluid Cloudy (Clear); Color, Peritoneal Fluid Pale Yellow (Pale Yellow); Pathology Referral Yes
[2023-07-09 14:29] LABS: Albumin Body Fluid 0.7 g/dL; Total Protein Body Fluid 1.5 g/dL
== END 2023-07-09 13:46 | disposition home or self-care (01) ==
LOC: GILAB 11:51
PROVIDERS: Radiology Diagnostic Radiology; PCP Family Medicine; Visit Provider Nurse Practitioner Family
PROC: (CPT 49082; principal; 2023-07-09 13:00)
DX: K70.31 Alcoholic cirrhosis of liver with ascites (principal)
CPT/HCPCS: 49083; 80503; 82042; 84157; 87070; 87075; 87205; 88112; 89050

== ENCOUNTER 2023-07-23 11:49 | Day surgery (SDC) | payer BC, MEDICAID, SELFPAY ==
--- NOTE | 2023-07-23 12:00 | US_ITS ---
WS: [email or web address] ULTRASOUND-GUIDED THERAPEUTIC AND DIAGNOSTIC PARACENTESIS Procedure, risks, and complications have been explained to the patient. Consent is obtained. Utilizing aseptic technique and 1% buffered lidocaine, a small dermatome was made through which a 5 F rench Yueh catheter was inserted. Approximately 6500 ml of clear peritoneal fluid was obtained witho ut difficulty. No complications encountered. US/US paracentesis abd w [id number] IMPRESSION: Uncomplicated paracentesis yielding 6500 ml of peritoneal fluid.
[2023-07-23 12:01] VITALS: BP 124/82; PULSE 87; RESP 16; TEMP 36.3; O2SAT 100
[2023-07-23 13:34] LABS: Mononuclear #, Pertinoneal Fl 0.133 10^3/uL; Polynuclear # Cells, Perit 0.032 10^3/uL; RBC Pertioneal Fluid 0 10^3/uL; WBC Peritoneal Fluid 165 /uL
[2023-07-23 13:51] LABS: Albumin Peritoneal Fluid 0.6 g/dL; Appearance, Peritoneal Fluid Cloudy (Clear); Color, Peritoneal Fluid Pale Yellow (Pale Yellow); Total Protein Body Fluid 1.5 g/dL
[2023-07-23] MEDS: albumin 50 G/200 ML BAG 60 G IV (13:59)
[2023-07-23 14:03] LABS: Cyto Order Verification Order Verified
== END 2023-07-23 14:22 | disposition home or self-care (01) ==
LOC: GILAB 11:50
PROVIDERS: Radiology Diagnostic Radiology; PCP Family Medicine; Visit Provider Nurse Practitioner Family
PROC: (CPT 49082; principal; 2023-07-23 13:00)
DX: K74.60 Unspecified cirrhosis of liver (principal); R18.8 Other ascites
CPT/HCPCS: 49083; 80503; 82042; 84157; 87075; 88112; 89050; 96365; P9046

== ENCOUNTER 2023-08-06 11:37 | Day surgery (SDC) | payer BC, MEDICAID, SELFPAY ==
[2023-08-06 11:49] VITALS: BP 128/75; PULSE 80; RESP 16; TEMP 36.1; O2SAT 97; BMI 20.5
--- NOTE | 2023-08-06 11:50 | US_ITS ---
WS: [email or web address] ULTRASOUND-GUIDED THERAPEUTIC AND DIAGNOSTIC PARACENTESIS Procedure, risks, and complications have been explained to the patient. Consent is obtained. Utilizing aseptic technique and 1% buffered lidocaine, a small dermatome was made through which a 5 F rench Yueh catheter was inserted. Approximately 6400 ml of clear yellow peritoneal fluid was obtained without difficulty. No complications encountered. US/US paracentesis abd w [id number] IMPRESSION: Uncomplicated paracentesis yielding 6400 ml of peritoneal fluid. Peritoneal fluid specimen collected for analysis.
[2023-08-06] MEDS: albumin 50 G/200 ML BAG 60 G IV (12:50)
[2023-08-06 12:55] LABS: Mononuclear #, Pertinoneal Fl 0.098 10^3/uL; Polynuclear # Cells, Perit 0.032 10^3/uL; RBC Pertioneal Fluid 0 10^3/uL; WBC Peritoneal Fluid 130 /uL
[2023-08-06 12:56] LABS: Appearance, Peritoneal Fluid Cloudy (Clear); Color, Peritoneal Fluid Pale Yellow (Pale Yellow); Cyto Order Verification Order Verified; Pathology Referral Yes
[2023-08-06 13:22] LABS: Albumin Peritoneal Fluid 0.6 g/dL; Total Protein Peritoneal Fluid 1.3 g/dL
== END 2023-08-06 13:11 | disposition home or self-care (01) ==
LOC: GILAB 11:38
PROVIDERS: Radiology Diagnostic Radiology; PCP Family Medicine; Visit Provider Nurse Practitioner Family
PROC: (CPT 49082; principal; 2023-08-06 13:00)
DX: R18.8 Other ascites (principal)
CPT/HCPCS: 49083; 80503; 82042; 84157; 87075; 88112; 89050; 96365; P9046

== ENCOUNTER → 2023-08-20 11:55 | Day surgery (SDC) | payer BC, MEDICAID, SELFPAY ==
[2023-08-20 12:03] VITALS: BP 133/88; PULSE 85; RESP 16; TEMP 36.2; O2SAT 99
--- NOTE | 2023-08-20 12:43 | US_ITS ---
WS: [email or web address] ULTRASOUND-GUIDED PARACENTESIS CLINICAL INFORMATION: ascites COMPARISON: None. Procedure Informed consent: The risks, benefits, and alternatives of the procedure were discussed with the chele ent. Verbal and written consent was obtained. Timeout: A timeout was performed to confirm the correct patient, procedure, and site. Preparation: A suitable skin site was identified. The patient was prepped and draped in usual sterile fashion. Lidocaine 1% was used for local anesthesia. Catheter: 4 Micronesian One-step Yueh catheter. Side: RIGHT lower quadrant. Fluid Volume: 6000 ml Color: Clear yellow DISPOSITION: Discarded safely. Complications: None. Patient disposition: Discharged from the department in stable condition. US/US paracentesis abd w [id number] IMPRESSION: Uncomplicated ultrasound-guided paracentesis. Removal of 6000 cc
[2023-08-20 13:12] LABS: Cyto Order Verification Order Verified
[2023-08-20 13:38] LABS: Albumin Peritoneal Fluid 0.8 g/dL; Total Protein Peritoneal Fluid 1.5 g/dL
[2023-08-20] MEDS: albumin 50 G/200 ML BAG 60 G IV (13:51)
== END ==
LOC: GILAB 11:55
PROVIDERS: Radiology Neuroradiology; PCP Family Medicine; Visit Provider Nurse Practitioner Family
PROC: (CPT 49082; principal; 2023-08-20 13:00)
DX: R18.8 Other ascites (principal)
CPT/HCPCS: 49083; 82042; 84157; 87075; 88112; 96365; P9046

== ENCOUNTER 2023-08-27 11:46 | Day surgery (SDC) | payer BC, MEDICAID, SELFPAY ==
--- NOTE | 2023-08-27 11:57 | US_ITS ---
WS: [email or web address] ULTRASOUND-GUIDED THERAPEUTIC AND DIAGNOSTIC PARACENTESIS Procedure, risks, and complications have been explained to the patient. Consent is obtained. Utilizing aseptic technique and 1% buffered lidocaine, a small dermatome was made through which a 5 F rench Yueh catheter was inserted. Approximately 6900 ml of clear peritoneal fluid was obtained witho ut difficulty. No complications encountered. US/US paracentesis abd w [id number] IMPRESSION: Uncomplicated paracentesis yielding 6900 ml of peritoneal fluid. Peritoneal fluid collected for analysis as requested.
[2023-08-27 11:59] VITALS: BP 137/86; PULSE 87; RESP 18; TEMP 36.4; O2SAT 99; BMI 21.9
[2023-08-27] MEDS: albumin 50 G/200 ML BAG 60 G IV (13:00)
[2023-08-27 13:27] LABS: Cyto Order Verification Order Verified
[2023-08-27 13:29] LABS: Mononuclear %, Pleural Fluid 84 %; Polynuclear Cells, Pleural % 16 %
[2023-08-27 13:40] LABS: Albumin Body Fluid 0.9 g/dL; Total Protein Peritoneal Fluid 1.5 g/dL
[2023-08-27 13:52] LABS: Appearance, Pleural Fluid CLOUDY (CLEAR); Color, Pleural Fluid Pale Yellow (Pale Yellow); PATH Referal YES
== END 2023-08-27 13:18 | disposition home or self-care (01) ==
PROVIDERS: Radiology Diagnostic Radiology; PCP Family Medicine; Visit Provider Nurse Practitioner Family
PROC: (CPT 49082; principal; 2023-08-27 13:00)
DX: K70.31 Alcoholic cirrhosis of liver with ascites (principal)
CPT/HCPCS: 49083; 80503; 82042; 84157; 87070; 87075; 87205; 88112; 89050; 96365; P9046

== ENCOUNTER 2023-09-03 11:34 | Day surgery (SDC) | payer BC, MEDICAID, SELFPAY ==
[2023-09-03 11:43] VITALS: BMI 22.6
[2023-09-03 11:44] VITALS: BP 131/88; PULSE 86; RESP 18; TEMP 36.3; O2SAT 99
--- NOTE | 2023-09-03 11:48 | US_ITS ---
WS: [email or web address] ULTRASOUND-GUIDED PARACENTESIS CLINICAL INFORMATION: Alcoholic cirrhosis of liver with ascites COMPARISON: None. Procedure Informed consent: The risks, benefits, and alternatives of the procedure were discussed with the chele ent. Verbal and written consent was obtained. Timeout: A timeout was performed to confirm the correct patient, procedure, and site. Preparation: A suitable skin site was identified. The patient was prepped and draped in usual sterile fashion. Lidocaine 1% was used for local anesthesia. Catheter: 4 Georgian One-step [place] catheter. Side: RIGHT lower quadrant. Fluid Volume: 5500 ml Color: Clear yellow Complications: None. US/US paracentesis abd w [id number] IMPRESSION: Uncomplicated ultrasound-guided paracentesis. Removal of 5500 cc
[2023-09-03 13:10] LABS: Mononuclear #, Pertinoneal Fl 0.093 10^3/uL; Polynuclear # Cells, Perit 0.019 10^3/uL; RBC Pertioneal Fluid 0 10^3/uL; WBC Peritoneal Fluid 112 /uL
[2023-09-03 13:11] LABS: Appearance, Peritoneal Fluid Cloudy (Clear); Color, Peritoneal Fluid Pale Yellow (Pale Yellow); Cyto Order Verification Order Verified
[2023-09-03] MEDS: albumin 50 G/200 ML BAG 60 G IV (13:15)
[2023-09-03 13:42] LABS: Albumin Body Fluid 0.7 g/dL; Total Protein Peritoneal Fluid 1.3 g/dL
== END 2023-09-03 13:55 | disposition home or self-care (01) ==
LOC: GILAB 11:34
PROVIDERS: Radiology Neuroradiology; PCP Family Medicine; Visit Provider Nurse Practitioner Family
PROC: (CPT 49082; principal; 2023-09-03 13:00)
DX: K70.31 Alcoholic cirrhosis of liver with ascites (principal)
CPT/HCPCS: 49083; 80503; 82042; 84157; 87075; 88112; 89050; 96365; P9046

== ENCOUNTER → 2023-09-10 11:40 | Day surgery (SDC) | payer BC, MEDICAID, SELFPAY ==
[2023-09-10 11:58] VITALS: BP 130/77; PULSE 84; RESP 18; TEMP 36.2; O2SAT 92
--- NOTE | 2023-09-10 12:04 | US_ITS ---
WS: [email or web address] ULTRASOUND-GUIDED THERAPEUTIC AND DIAGNOSTIC PARACENTESIS Procedure, risks, and complications have been explained to the patient. Consent is obtained. Utilizing aseptic technique and 1% buffered lidocaine, a small dermatome was made through which a 5 F rench Yueh catheter was inserted. Approximately 6000 ml of clear peritoneal fluid was obtained witho ut difficulty. No complications encountered. US/US paracentesis abd w [id number] IMPRESSION: Uncomplicated paracentesis yielding 6000 ml of peritoneal fluid.
[2023-09-10] MEDS: albumin 50 G/200 ML BAG 60 G IV (13:09)
[2023-09-10 13:21] LABS: Cyto Order Verification Order Verified
[2023-09-10 13:27] LABS: Appearance, Peritoneal Fluid Hazy (Clear); Color, Peritoneal Fluid Pale Yellow (Pale Yellow); Pathology Referral Yes; Polynuclear # Cells, Perit 0.026 10^3/uL; RBC Pertioneal Fluid 0 10^3/uL; WBC Peritoneal Fluid 146 /uL
[2023-09-10 13:32] LABS: Albumin Peritoneal Fluid 0.9 g/dL; Total Protein Peritoneal Fluid 1.6 g/dL
== END ==
PROVIDERS: Nurse Practitioner Family; Radiology Diagnostic Radiology; PCP Family Medicine
PROC: (CPT 49082; principal; 2023-09-10 13:00)
DX: R18.8 Other ascites (principal)
CPT/HCPCS: 49083; 80503; 82042; 84157; 87075; 88112; 89050; 96365; P9046

== ENCOUNTER → 2023-09-17 11:05 | Day surgery (SDC) | payer BC, MEDICAID, SELFPAY ==
--- NOTE | 2023-09-17 11:12 | US_ITS ---
WS: [email or web address] ULTRASOUND-GUIDED PARACENTESIS CLINICAL INFORMATION: Alcoholic cirrhosis of liver with ascities COMPARISON: None. Procedure Informed consent: The risks, benefits, and alternatives of the procedure were discussed with the chele ent. Verbal and written consent was obtained. Timeout: A timeout was performed to confirm the correct patient, procedure, and site. Preparation: A suitable skin site was identified. The patient was prepped and draped in usual sterile fashion. Lidocaine 1% was used for local anesthesia. Catheter: 4 Surinamese One-step Yueh catheter. Side: RIGHT lower quadrant. Fluid Volume: 4700 ml Color: Clear yellow DISPOSITION: Discarded safely. Complications: None. Patient disposition: Discharged from the department in stable condition. US/US paracentesis abd w [id number] IMPRESSION: Uncomplicated ultrasound-guided paracentesis. Removal of 4700 cc
[2023-09-17 11:15] VITALS: BP 130/79; PULSE 86; RESP 18; TEMP 36.1; O2SAT 99
[2023-09-17 12:32] LABS: Cyto Order Verification Order Verified
[2023-09-17 12:33] LABS: Body Fluid Polynuclear #Cells 0.026; Body Fluid WBC 162 /uL; Monocytes # Body Fluid 0.136; RBC, Body Fluid 0 10^3/uL
[2023-09-17 12:41] LABS: Apprearance, Body Fluid CLOUDY; Color, Body Fluid PALE YELLOW
[2023-09-17 13:00] LABS: Albumin Body Fluid 0.9 g/dL; Total Protein Body Fluid 1.7 g/dL
[2023-09-17 13:06] LABS: Fluid Laterality PERITONEAL FLUID
== END ==
LOC: GILAB 11:05
PROVIDERS: Nurse Practitioner Family; Radiology Neuroradiology; PCP Family Medicine
PROC: (CPT 49082; principal; 2023-09-17 12:30)
DX: K70.31 Alcoholic cirrhosis of liver with ascites (principal)
CPT/HCPCS: 49083; 80503; 82042; 84157; 87070; 87075; 87205; 88112; 88305; 89050

== ENCOUNTER → 2023-09-24 11:34 | Day surgery (SDC) | payer BC, MEDICAID, SELFPAY ==
--- NOTE | 2023-09-24 11:43 | US_ITS ---
WS: [email or web address] ULTRASOUND-GUIDED THERAPEUTIC AND DIAGNOSTIC PARACENTESIS Procedure, risks, and complications have been explained to the patient. Consent is obtained. Utilizing aseptic technique and 1% buffered lidocaine, a small dermatome was made through which a 5 F rench Yueh catheter was inserted. Approximately 4250 ml of clear peritoneal fluid was obtained witho ut difficulty. No complications encountered. Specimen collected for analysis as requested. US/US paracentesis abd w [id number] IMPRESSION: Uncomplicated paracentesis yielding 4250 ml of peritoneal fluid.
[2023-09-24 11:50] VITALS: BP 122/73; PULSE 81; RESP 18; TEMP 36.4; O2SAT 98
[2023-09-24 12:43] LABS: Appearance, Peritoneal Fluid Cloudy (Clear); Color, Peritoneal Fluid Yellow (Pale Yellow); Cyto Order Verification Order Verified; Pathology Referral Yes
[2023-09-24 12:47] LABS: Mononuclear #, Pertinoneal Fl 0.112 10^3/uL; Polynuclear # Cells, Perit 0.017 10^3/uL; RBC Pertioneal Fluid 0 10^3/uL; WBC Peritoneal Fluid 129 /uL
[2023-09-24 12:59] LABS: Albumin Peritoneal Fluid 0.7 g/dL; Total Protein Body Fluid 1.4 g/dL
== END ==
PROVIDERS: Nurse Practitioner Family; Radiology Diagnostic Radiology; PCP Family Medicine
PROC: (CPT 49082; principal; 2023-09-24 13:00)
DX: R18.8 Other ascites (principal)
CPT/HCPCS: 49083; 80503; 82042; 84157; 87070; 87075; 87205; 88112; 89050

== ENCOUNTER 2023-10-01 11:49 | Day surgery (SDC) | payer BC, MEDICAID, SELFPAY ==
[2023-10-01 11:55] VITALS: BP 138/82; PULSE 88; RESP 18; TEMP 36.1; O2SAT 97
--- NOTE | 2023-10-01 11:59 | US_ITS ---
WS: [email or web address] ULTRASOUND-GUIDED PARACENTESIS CLINICAL INFORMATION: Alcoholic cirrhosis of liver with ascites COMPARISON: None. Procedure Informed consent: The risks, benefits, and alternatives of the procedure were discussed with the chele ent. Verbal and written consent was obtained. Timeout: A timeout was performed to confirm the correct patient, procedure, and site. Preparation: A suitable skin site was identified. The patient was prepped and draped in usual sterile fashion. Lidocaine 1% was used for local anesthesia. Catheter: 4 Yi One-step T-RAM Semiconductoreh catheter. Side: RIGHT lower quadrant. Fluid Volume: 4850 ml Color: Clear yellow DISPOSITION: Discarded safely. Complications: None. Patient disposition: Discharged from the department in stable condition. US/US paracentesis abd w [id number] IMPRESSION: Uncomplicated ultrasound-guided paracentesis. Removal of 4850 cc
[2023-10-01 13:38] LABS: Cyto Order Verification Order Verified
[2023-10-01 13:47] LABS: Albumin Peritoneal Fluid 0.6 g/dL; Total Protein Peritoneal Fluid 1.2 g/dL
== END 2023-10-01 13:25 | disposition home or self-care (01) ==
LOC: GILAB 11:49
PROVIDERS: Radiology Neuroradiology; PCP Family Medicine; Visit Provider Nurse Practitioner Family
PROC: (CPT 49082; principal; 2023-10-01 13:00)
DX: K70.31 Alcoholic cirrhosis of liver with ascites (principal)
CPT/HCPCS: 49083; 82042; 84157; 87075; 88112

== ENCOUNTER → 2023-10-08 11:42 | Day surgery (SDC) | payer BC, MEDICAID, SELFPAY ==
[2023-10-08 12:03] VITALS: BP 121/79; PULSE 85; RESP 181; TEMP 36.1; O2SAT 94
--- NOTE | 2023-10-08 12:11 | US_ITS ---
WS: [email or web address] ULTRASOUND-GUIDED THERAPEUTIC AND DIAGNOSTIC PARACENTESIS Procedure, risks, and complications have been explained to the patient. Consent is obtained. Utilizing aseptic technique and 1% buffered lidocaine, a small dermatome was made through which a 5 F rench Yueh catheter was inserted. Approximately 4100 ml of clear peritoneal fluid was obtained witho ut difficulty. No complications encountered. Specimen collected for analysis. US/US paracentesis abd w [id number] IMPRESSION: Uncomplicated paracentesis yielding 4100 ml of peritoneal fluid.
[2023-10-08 13:21] VITALS: BMI 23.0
[2023-10-08 13:27] LABS: Polynuclear # Cells, Perit 0.036 10^3/uL; RBC Pertioneal Fluid 0 10^3/uL; WBC Peritoneal Fluid 146 /uL
[2023-10-08 13:36] LABS: Appearance, Peritoneal Fluid Cloudy (Clear); Color, Peritoneal Fluid Pale Yellow (Pale Yellow); Cyto Order Verification Order Verified
[2023-10-08 13:54] LABS: Albumin Peritoneal Fluid 0.6 g/dL; Total Protein Peritoneal Fluid 1.1 g/dL
== END ==
PROVIDERS: Radiology Diagnostic Radiology; PCP Family Medicine; Visit Provider Nurse Practitioner Family
PROC: (CPT 49082; principal; 2023-10-08 13:00)
DX: K70.31 Alcoholic cirrhosis of liver with ascites (principal)
CPT/HCPCS: 49083; 80503; 82042; 84157; 87070; 87075; 87205; 88112; 89050

== ENCOUNTER 2023-10-15 12:04 | Day surgery (SDC) | payer BC, MEDICAID, SELFPAY ==
--- NOTE | 2023-10-15 12:18 | US_ITS ---
WS: [email or web address] ULTRASOUND-GUIDED PARACENTESIS CLINICAL INFORMATION: ALCOHOLIC CIRRHOSIS OF LIVER W/ASCITES COMPARISON: None. Procedure Informed consent: The risks, benefits, and alternatives of the procedure were discussed with the chele ent. Verbal and written consent was obtained. Timeout: A timeout was performed to confirm the correct patient, procedure, and site. Preparation: A suitable skin site was identified. The patient was prepped and draped in usual sterile fashion. Lidocaine 1% was used for local anesthesia. Catheter: 4 Monegasque One-step Yueh catheter. Side: RIGHT lower quadrant. Fluid Volume: 5000 ml Color: Clear yellow Complications: None. Patient disposition: Discharged from the department in stable condition. US/US paracentesis abd w [id number] IMPRESSION: Uncomplicated ultrasound-guided paracentesis. Removal of 5000 cc
[2023-10-15 12:20] VITALS: BP 128/82; PULSE 93; RESP 20; TEMP 36.6; O2SAT 98; BMI 18.2
[2023-10-15 13:49] LABS: Appearance, Peritoneal Fluid Cloudy (Clear); Color, Peritoneal Fluid Pale Yellow (Pale Yellow); Cyto Order Verification Order Verified; Pathology Referral Yes
[2023-10-15 13:57] LABS: Mononuclear #, Pertinoneal Fl 0.102 10^3/uL; Polynuclear # Cells, Perit 0.018 10^3/uL; RBC Pertioneal Fluid 0 10^3/uL; WBC Peritoneal Fluid 120 /uL
[2023-10-15 14:26] LABS: Albumin Peritoneal Fluid 0.5 g/dL; Total Protein Peritoneal Fluid 1.1 g/dL
== END 2023-10-15 14:09 | disposition home or self-care (01) ==
PROVIDERS: Radiology Neuroradiology; PCP Family Medicine; Visit Provider Nurse Practitioner Family
PROC: (CPT 49082; principal; 2023-10-15 13:00)
DX: K70.31 Alcoholic cirrhosis of liver with ascites (principal)
CPT/HCPCS: 49083; 80503; 82042; 84157; 87070; 87075; 87205; 88112; 89050

== ENCOUNTER 2023-10-22 11:52 | Day surgery (SDC) | payer BC, MEDICAID, SELFPAY ==
[2023-10-22 12:10] VITALS: BP 118/79; PULSE 92; RESP 18; TEMP 36.6; O2SAT 98
--- NOTE | 2023-10-22 12:10 | US_ITS ---
WS: [email or web address] ULTRASOUND-GUIDED PARACENTESIS Procedure, risks, and complications have been explained to the patient. Consent is obtained. Utilizing aseptic technique and 1% buffered lidocaine, a small dermatome was made through which a 5 F rench Yueh catheter was inserted. Approximately 5500 ml of clear peritoneal fluid was obtained witho ut difficulty. No complications encountered. US/US paracentesis abd w [id number] IMPRESSION: Uncomplicated paracentesis yielding 5500 ml of peritoneal fluid.
[2023-10-22 13:00] LABS: Cyto Order Verification Order Verified
[2023-10-22 13:03] LABS: Body Fluid WBC 98 /uL; Monocytes # Body Fluid 0.078; RBC, Body Fluid 0 10^3/uL
[2023-10-22 13:21] LABS: Apprearance, Body Fluid CLOUDY; Color, Body Fluid PALE YELLOW; PATH Referral YES
[2023-10-22 13:22] LABS: Fluid Laterality PARATONEAL FLUID
[2023-10-22 13:35] LABS: Albumin Body Fluid 0.5 g/dL
== END 2023-10-22 12:45 | disposition home or self-care (01) ==
PROVIDERS: Radiology Diagnostic Radiology; PCP Family Medicine; Visit Provider Nurse Practitioner Psychiatric/Mental Health
PROC: (CPT 49082; principal; 2023-10-22 13:00)
DX: R18.8 Other ascites (principal)
CPT/HCPCS: 49083; 80503; 82042; 87070; 87075; 87205; 88112; 88305; 89050

== ENCOUNTER → 2023-10-29 11:07 | Day surgery (SDC) | payer BC, MEDICAID, SELFPAY ==
--- NOTE | 2023-10-29 11:34 | US_ITS ---
WS: [email or web address] ULTRASOUND-GUIDED PARACENTESIS CLINICAL INFORMATION: ascites COMPARISON: None. Procedure Informed consent: The risks, benefits, and alternatives of the procedure were discussed with the chele ent. Verbal and written consent was obtained. Timeout: A timeout was performed to confirm the correct patient, procedure, and site. Preparation: A suitable skin site was identified. The patient was prepped and draped in usual sterile fashion. Lidocaine 1% was used for local anesthesia. Catheter: 4 Italian One-step Yueh catheter. Side: RIGHT lower quadrant. Fluid Volume: 5750 ml Color: Clear yellow DISPOSITION: Discarded safely. Complications: None. Patient disposition: Discharged from the department in stable condition. US/US paracentesis abd w [id number] IMPRESSION: Uncomplicated ultrasound-guided paracentesis. Removal of 5750 cc
[2023-10-29 11:44] VITALS: BP 131/77; PULSE 92; RESP 18; TEMP 36.3; O2SAT 98; BMI 21.2
--- NOTE | 2023-10-29 13:11 | PC.NURSE ---
pt refused albumin
[2023-10-29 13:13] LABS: Appearance, Peritoneal Fluid Cloudy (Clear); Color, Peritoneal Fluid Pale Yellow (Pale Yellow); Cyto Order Verification Order Verified
[2023-10-29 13:14] LABS: Pathology Referral Yes
[2023-10-29 13:15] LABS: Mononuclear #, Pertinoneal Fl 0.101 10^3/uL; Polynuclear # Cells, Perit 0.026 10^3/uL; RBC Pertioneal Fluid 0 10^3/uL; WBC Peritoneal Fluid 127 /uL
[2023-10-29 13:40] LABS: Albumin Peritoneal Fluid 0.5 g/dL
== END ==
PROVIDERS: Radiology Neuroradiology; PCP Family Medicine; Visit Provider Nurse Practitioner Family
PROC: (CPT 49082; principal; 2023-10-29 13:00)
DX: R18.8 Other ascites (principal)
CPT/HCPCS: 49083; 80503; 82042; 84157; 87070; 87075; 87205; 88112; 89050

== ENCOUNTER 2023-11-05 11:24 | Day surgery (SDC) | payer BC, MEDICAID, SELFPAY ==
[2023-11-05 11:41] VITALS: BP 136/79; PULSE 94; RESP 18; TEMP 36.3; O2SAT 99
[2023-11-05 11:42] VITALS: BMI 21.0
--- NOTE | 2023-11-05 11:45 | US_ITS ---
WS: [email or web address] ULTRASOUND-GUIDED THERAPEUTIC PARACENTESIS Procedure, risks, and complications have been explained to the patient. Consent is obtained. Utilizing aseptic technique and 1% buffered lidocaine, a small dermatome was made through which a 5 F rench Yueh catheter was inserted. Approximately 5750 ml of clear peritoneal fluid was obtained witho ut difficulty. No complications encountered. US/US paracentesis abd w [id number] IMPRESSION: Uncomplicated paracentesis yielding 5750 ml of peritoneal fluid.
[2023-11-05 13:28] LABS: Apprearance, Body Fluid CLOUDY; Color, Body Fluid PALE YELLOW; Cyto Order Verification Order Verified
[2023-11-05 13:29] LABS: Body Fluid Polynuclear #Cells 0.031; Body Fluid WBC 132 /uL; Fluid Laterality PERITONEAL FLUID; Monocytes # Body Fluid 0.101; PATH Referral YES; RBC, Body Fluid 0 10^3/uL
[2023-11-05 13:55] LABS: Albumin Body Fluid 0.6 g/dL; Total Protein Body Fluid 0.9 g/dL
== END 2023-11-05 13:30 | disposition home or self-care (01) ==
PROVIDERS: Radiology Diagnostic Radiology; PCP Family Medicine; Visit Provider Nurse Practitioner Family
PROC: (CPT 49082; principal; 2023-11-05 12:30)
DX: R18.8 Other ascites (principal)
CPT/HCPCS: 49083; 80503; 82042; 84157; 87070; 87075; 87205; 88112; 89050

== ENCOUNTER 2023-11-12 11:08 | Day surgery (SDC) | payer BC, MEDICAID, SELFPAY ==
[2023-11-12 11:20] VITALS: BP 125/83; PULSE 99; RESP 20; TEMP 36.3; O2SAT 100
[2023-11-12 11:31] VITALS: BMI 23.3
--- NOTE | 2023-11-12 11:36 | US_ITS ---
WS: [email or web address] ULTRASOUND-GUIDED PARACENTESIS CLINICAL INFORMATION: ascites COMPARISON: None. Procedure Informed consent: The risks, benefits, and alternatives of the procedure were discussed with the chele ent. Verbal and written consent was obtained. Timeout: A timeout was performed to confirm the correct patient, procedure, and site. Preparation: A suitable skin site was identified. The patient was prepped and draped in usual sterile fashion. Lidocaine 1% was used for local anesthesia. Catheter: 4 Surinamese One-step Yueh catheter. Side: RIGHT lower quadrant. Fluid Volume: 5400 ml Color: Clear yellow DISPOSITION: Discarded safely. Complications: None. US/US paracentesis abd w [id number] IMPRESSION: Uncomplicated ultrasound-guided paracentesis. Removal of 5400cc
[2023-11-12 12:47] LABS: Cyto Order Verification Order Verified
[2023-11-12 12:51] LABS: Body Fluid Polynuclear #Cells 0.024; Body Fluid WBC 116 /uL; Monocytes # Body Fluid 0.092; RBC, Body Fluid 0 10^3/uL
[2023-11-12 12:56] LABS: Apprearance, Body Fluid CLOUDY; Color, Body Fluid PALE YELLOW; Fluid Laterality PERITONEAL FLUID; PATH Referral YES
[2023-11-12 13:19] LABS: Albumin Body Fluid 0.5 g/dL
== END 2023-11-12 12:53 | disposition home or self-care (01) ==
PROVIDERS: Radiology Neuroradiology; PCP Family Medicine; Visit Provider Nurse Practitioner Family
PROC: (CPT 49082; principal; 2023-11-12 12:30)
DX: R18.8 Other ascites (principal)
CPT/HCPCS: 49083; 80503; 82042; 84157; 87070; 87075; 87205; 88112; 89050

== ENCOUNTER 2023-11-19 11:20 | Day surgery (SDC) | payer BC, MEDICAID, SELFPAY ==
--- NOTE | 2023-11-19 11:44 | US_ITS ---
WS: [email or web address] ULTRASOUND-GUIDED THERAPEUTIC AND DIAGNOSTIC PARACENTESIS Procedure, risks, and complications have been explained to the patient. Consent is obtained. Utilizing aseptic technique and 1% buffered lidocaine, a small dermatome was made through which a 5 F rench Yueh catheter was inserted. Approximately 6000 ml of clear peritoneal fluid was obtained witho ut difficulty. No complications encountered. Peritoneal fluid collected for analysis as requested. US/US paracentesis abd w [id number] IMPRESSION: Uncomplicated paracentesis yielding 6000 ml of peritoneal fluid.
[2023-11-19 11:50] VITALS: BP 106/73; PULSE 83; RESP 18; TEMP 36.1; O2SAT 98
[2023-11-19 12:00] VITALS: BMI 20.1
[2023-11-19 13:14] LABS: Cyto Order Verification Order Verified
[2023-11-19 13:18] LABS: Appearance, Pleural Fluid CLOUDY (CLEAR); Color, Pleural Fluid Pale Yellow (Pale Yellow); PATH Referal YES
[2023-11-19 13:21] LABS: Mononuclear %, Pleural Fluid 78 %; Polynuclear Cells, Pleural % 22 %
--- NOTE | 2023-11-19 13:28 | PC.NURSE ---
6,000 ml peritoneal fluid drained. Orders to receive albumin over 5,000 ml. Patient refused albumin. Risks and benefits explained to patient.
[2023-11-19 13:40] LABS: Albumin Peritoneal Fluid 0.5 g/dL
== END 2023-11-19 13:28 | disposition home or self-care (01) ==
PROVIDERS: Radiology Diagnostic Radiology; PCP Family Medicine; Visit Provider Nurse Practitioner Family
PROC: (CPT 49082; principal; 2023-11-19 13:00)
DX: K70.31 Alcoholic cirrhosis of liver with ascites (principal)
CPT/HCPCS: 49083; 80503; 82042; 84157; 87070; 87075; 87205; 88112; 89050

== ENCOUNTER 2023-11-26 11:34 | Day surgery (SDC) | payer BC, MEDICAID, SELFPAY ==
--- NOTE | 2023-11-26 11:44 | US_ITS ---
WS: [email or web address] ULTRASOUND-GUIDED PARACENTESIS CLINICAL INFORMATION: ascites COMPARISON: None. Procedure Informed consent: The risks, benefits, and alternatives of the procedure were discussed with the chele ent. Verbal and written consent was obtained. Timeout: A timeout was performed to confirm the correct patient, procedure, and site. Preparation: A suitable skin site was identified. The patient was prepped and draped in usual sterile fashion. Lidocaine 1% was used for local anesthesia. Catheter: 4 Latvian One-step Yueh catheter. Side: RIGHT lower quadrant. Fluid Volume: 6600 ml Color: Pale cloudy yellow DISPOSITION: Discarded safely. Complications: None. Patient disposition: Discharged from the department in stable condition. US/US paracentesis abd w [id number] IMPRESSION: Uncomplicated ultrasound-guided paracentesis. Removal of 6600 cc pale cloudy yellow fluid
[2023-11-26 11:50] VITALS: BP 125/88; PULSE 91; RESP 18; TEMP 36.4; O2SAT 99; BMI 20.3
[2023-11-26 12:53] LABS: Appearance, Peritoneal Fluid Cloudy (Clear); Color, Peritoneal Fluid Pale Yellow (Pale Yellow); Cyto Order Verification Order Verified
[2023-11-26 12:54] LABS: Pathology Referral Yes
--- NOTE | 2023-11-26 13:11 | PC.NURSE ---
1300-Pt had 6,600ml out, but refused albumin
[2023-11-26 13:18] LABS: Mononuclear #, Pertinoneal Fl 0.073 10^3/uL; Polynuclear # Cells, Perit 0.013 10^3/uL; RBC Pertioneal Fluid 0 10^3/uL; WBC Peritoneal Fluid 86 /uL
[2023-11-26 13:32] LABS: Albumin Peritoneal Fluid 0.6 g/dL
== END 2023-11-26 13:09 | disposition home or self-care (01) ==
PROVIDERS: Radiology Neuroradiology; PCP Family Medicine; Visit Provider Nurse Practitioner Family
PROC: (CPT 49082; principal; 2023-11-26 12:30)
DX: R18.8 Other ascites (principal)
CPT/HCPCS: 49083; 80503; 82042; 84157; 87070; 87075; 87205; 88112; 89050

== ENCOUNTER 2023-12-03 11:05 | Day surgery (SDC) | payer BC, MEDICAID, SELFPAY ==
--- NOTE | 2023-12-03 11:40 | US_ITS ---
WS: [email or web address] ULTRASOUND-GUIDED THERAPEUTIC AND DIAGNOSTIC PARACENTESIS Procedure, risks, and complications have been explained to the patient. Consent is obtained. Utilizing aseptic technique and 1% buffered lidocaine, a small dermatome was made through which a 5 F rench Yueh catheter was inserted. Approximately 6300 ml of clear peritoneal fluid was obtained witho ut difficulty. No complications encountered. Specimen collected for analysis. No image was saved of the peritoneal fluid. US/US paracentesis abd w [id number] IMPRESSION: Uncomplicated paracentesis yielding 6300 ml of peritoneal fluid.
[2023-12-03 11:41] VITALS: BP 119/77; PULSE 79; RESP 16; TEMP 36.5; O2SAT 99; BMI 20.3
[2023-12-03 12:31] LABS: Appearance, Peritoneal Fluid Cloudy (Clear); Color, Peritoneal Fluid Pale Yellow (Pale Yellow); Cyto Order Verification Order Verified
[2023-12-03 12:35] LABS: Polynuclear # Cells, Perit 0.021 10^3/uL; RBC Pertioneal Fluid 0 10^3/uL; WBC Peritoneal Fluid 121 /uL
[2023-12-03 13:02] LABS: Albumin Peritoneal Fluid 0.6 g/dL; Total Protein Peritoneal Fluid 1.1 g/dL
[2023-12-03 13:03] LABS: Pathology Referral Yes
== END 2023-12-03 12:46 | disposition home or self-care (01) ==
PROVIDERS: Radiology Diagnostic Radiology; PCP Family Medicine; Visit Provider Nurse Practitioner Family
PROC: (CPT 49082; principal; 2023-12-03 12:30)
DX: R18.8 Other ascites (principal)
CPT/HCPCS: 49083; 80503; 82042; 84157; 87075; 88112; 89050

== ENCOUNTER 2023-12-10 11:16 | Day surgery (SDC) | payer BC, MEDICAID, SELFPAY ==
[2023-12-10 11:30] VITALS: BP 135/85; PULSE 93; RESP 16; TEMP 36.3; O2SAT 96; BMI 20.3
--- NOTE | 2023-12-10 11:32 | US_ITS ---
WS: [email or web address] ULTRASOUND-GUIDED PARACENTESIS CLINICAL INFORMATION: ascites COMPARISON: None. Procedure Informed consent: The risks, benefits, and alternatives of the procedure were discussed with the chele ent. Verbal and written consent was obtained. Timeout: A timeout was performed to confirm the correct patient, procedure, and site. Preparation: A suitable skin site was identified. The patient was prepped and draped in usual sterile fashion. Lidocaine 1% was used for local anesthesia. Catheter: 4 Lebanese One-step Yueh catheter. Side: RIGHT lower quadrant. Fluid Volume: 4300 ml Color: Clear yellow Complications: None. Patient disposition: Discharged from the department in stable condition. US/US paracentesis abd w [id number] IMPRESSION: Uncomplicated ultrasound-guided paracentesis.
[2023-12-10 12:41] LABS: Cyto Order Verification Order Verified
[2023-12-10 12:42] LABS: Mononuclear #, Pertinoneal Fl 0.096 10^3/uL; Polynuclear # Cells, Perit 0.014 10^3/uL; RBC Pertioneal Fluid 0 10^3/uL; WBC Peritoneal Fluid 110 /uL
[2023-12-10 12:49] LABS: Appearance, Peritoneal Fluid Cloudy (Clear); Color, Peritoneal Fluid Pale Yellow (Pale Yellow); Pathology Referral Yes
[2023-12-10 13:15] LABS: Albumin Peritoneal Fluid 0.6 g/dL
== END 2023-12-10 12:55 | disposition home or self-care (01) ==
PROVIDERS: Radiology Neuroradiology; PCP Family Medicine; Visit Provider Nurse Practitioner Family
PROC: (CPT 49082; principal; 2023-12-10 12:30)
DX: R18.8 Other ascites (principal)
CPT/HCPCS: 49083; 80503; 82042; 84157; 87070; 87075; 87205; 88112; 88305; 89050

== ENCOUNTER 2023-12-17 11:41 | Day surgery (SDC) | payer BC, MEDICAID, SELFPAY ==
--- NOTE | 2023-12-17 12:07 | US_ITS ---
WS: [id number] ULTRASOUND-GUIDED THERAPEUTIC AND DIAGNOSTIC PARACENTESIS Procedure, risks, and complications have been explained to the patient. Consent is obtained. Utilizing aseptic technique and 1% buffered lidocaine, a small dermatome was made through which a 5 F rench Yueh catheter was inserted. Approximately 7125 ml of clear peritoneal fluid was obtained witho ut difficulty. No complications encountered. Fluid was collected for analysis. US/US paracentesis abd w [id number] IMPRESSION: Uncomplicated paracentesis yielding 7125 ml of peritoneal fluid.
[2023-12-17 12:09] VITALS: BP 128/86; PULSE 84; RESP 18; TEMP 36.3; O2SAT 98; BMI 21.0
[2023-12-17 13:06] LABS: Apprearance, Body Fluid CLOUDY; Color, Body Fluid PALE YELLOW; Cyto Order Verification Order Verified
[2023-12-17 13:09] LABS: Body Fluid Polynuclear #Cells 0.014; Body Fluid WBC 91 /uL; Monocytes # Body Fluid 0.077; RBC, Body Fluid 0 10^3/uL
--- NOTE | 2023-12-17 13:37 | PC.NURSE ---
pt refused albumin therapy
[2023-12-17 13:52] LABS: Albumin Peritoneal Fluid 0.6 g/dL
[2023-12-17 14:34] LABS: Fluid Laterality PERITONEAL; PATH Referral YES
== END 2023-12-17 13:37 | disposition home or self-care (01) ==
PROVIDERS: Nurse Practitioner Family; Radiology Diagnostic Radiology; PCP Family Medicine; Visit Provider Student in an Organized Health Care Education/Training Program
PROC: (CPT 49082; principal; 2023-12-17 12:30)
DX: R18.8 Other ascites (principal)
CPT/HCPCS: 49083; 80503; 82042; 84157; 87070; 87075; 87205; 88112; 88305; 89050

== ENCOUNTER → 2023-12-24 11:11 | Day surgery (SDC) | payer BC, MEDICAID, SELFPAY ==
[2023-12-24 11:27] VITALS: BP 137/92; PULSE 94; RESP 18; TEMP 36.3; O2SAT 100; BMI 21.9
--- NOTE | 2023-12-24 11:45 | US_ITS ---
WS: [email or web address] ULTRASOUND-GUIDED PARACENTESIS CLINICAL INFORMATION: ascities COMPARISON: None. Procedure Informed consent: The risks, benefits, and alternatives of the procedure were discussed with the chele ent. Verbal and written consent was obtained. Timeout: A timeout was performed to confirm the correct patient, procedure, and site. Preparation: A suitable skin site was identified. The patient was prepped and draped in usual sterile fashion. Lidocaine 1% was used for local anesthesia. Catheter: 4 Amharic One-step Yueh catheter. Side: RIGHT lower quadrant. Fluid Volume: 6600 ml Color: Clear yellow DISPOSITION: Discarded safely. Complications: None. Patient disposition: Discharged from the department in stable condition. US/US paracentesis abd w [id number] IMPRESSION: Uncomplicated ultrasound-guided paracentesis. Removal of 6600 cc
[2023-12-24 13:00] LABS: Apprearance, Body Fluid CLOUDY; Color, Body Fluid PALE YELLOW
[2023-12-24 13:01] LABS: Cyto Order Verification Order Verified; Fluid Laterality PERITONEAL FLUID; PATH Referral YES
[2023-12-24 13:06] LABS: Body Fluid Polynuclear #Cells 0.014; Body Fluid WBC 102 /uL; Monocytes # Body Fluid 0.088; RBC, Body Fluid 0 10^3/uL
[2023-12-24 13:32] LABS: Albumin Body Fluid 0.6 g/dL; Total Protein Body Fluid 0.9 g/dL
== END ==
LOC: GILAB 11:11
PROVIDERS: Nurse Practitioner Family; Radiology Neuroradiology; PCP Family Medicine; Visit Provider Student in an Organized Health Care Education/Training Program
PROC: (CPT 49082; principal; 2023-12-24 12:30)
DX: R18.8 Other ascites (principal)
CPT/HCPCS: 49083; 80503; 82042; 84157; 87070; 87075; 87205; 88112; 89050

== ENCOUNTER 2023-12-31 11:24 | Day surgery (SDC) | payer BC, MEDICAID, SELFPAY ==
[2023-12-31 11:34] VITALS: BP 134/91; PULSE 91; RESP 18; TEMP 37; O2SAT 99
--- NOTE | 2023-12-31 11:40 | US_ITS ---
WS: [id number] ULTRASOUND-GUIDED THERAPEUTIC AND DIAGNOSTIC PARACENTESIS Procedure, risks, and complications have been explained to the patient. Consent is obtained. Utilizing aseptic technique and 1% buffered lidocaine, a small dermatome was made through which a 5 F rench Yueh catheter was inserted. Approximately 7000 ml of clear peritoneal fluid was obtained witho ut difficulty. No complications encountered. US/US paracentesis abd w [id number] IMPRESSION: Uncomplicated paracentesis yielding 7000 ml of peritoneal fluid.
[2023-12-31] MEDS: albumin 50 G/200 ML BAG 500 G IV (12:59)
[2023-12-31 13:11] LABS: Appearance, Peritoneal Fluid Cloudy (Clear); Color, Peritoneal Fluid Pale Yellow (Pale Yellow); Cyto Order Verification No Order; Pathology Referral Yes
[2023-12-31 13:15] LABS: Mononuclear #, Pertinoneal Fl 0.083 10^3/uL; Polynuclear # Cells, Perit 0.015 10^3/uL; RBC Pertioneal Fluid 0 10^3/uL; WBC Peritoneal Fluid 98 /uL
[2023-12-31 13:38] LABS: Albumin Peritoneal Fluid 0.6 g/dL
== END 2023-12-31 13:20 | disposition home or self-care (01) ==
PROVIDERS: Nurse Practitioner Family; Radiology Diagnostic Radiology; PCP Family Medicine; Visit Provider Student in an Organized Health Care Education/Training Program
PROC: (CPT 49082; principal; 2023-12-31 12:30)
DX: K70.31 Alcoholic cirrhosis of liver with ascites (principal)
CPT/HCPCS: 49083; 80503; 82042; 84157; 87070; 87075; 87205; 89050; 96365; P9046

== ENCOUNTER 2024-01-06 09:53 | Day surgery (SDC) | payer BC, MEDICAID, SELFPAY ==
--- NOTE | 2024-01-06 10:05 | US_ITS ---
WS: [email or web address] ULTRASOUND-GUIDED PARACENTESIS CLINICAL INFORMATION: ALCOHOLIC CIRRHOSIS OF LIVER WITH ASCITES COMPARISON: None. Procedure Informed consent: The risks, benefits, and alternatives of the procedure were discussed with the chele ent. Verbal and written consent was obtained. Timeout: A timeout was performed to confirm the correct patient, procedure, and site. Preparation: A suitable skin site was identified. The patient was prepped and draped in usual sterile fashion. Lidocaine 1% was used for local anesthesia. Catheter: 4 Khmer One-step Yueh catheter. Side: RIGHT lower quadrant. Fluid Volume: 6300 ml Color: Clear yellow DISPOSITION: Discarded safely. Complications: None. Patient disposition: Discharged from the department in stable condition. US/US paracentesis abd w [id number] IMPRESSION: Uncomplicated ultrasound-guided paracentesis. Removal of 6300
[2024-01-06 10:10] VITALS: BP 131/83; PULSE 86; RESP 17; TEMP 36.6; O2SAT 98; BMI 20.1
[2024-01-06 11:23] LABS: Apprearance, Body Fluid CLOUDY; Color, Body Fluid PALE YELLOW; Cyto Order Verification Order Verified; PATH Referral YES
[2024-01-06 11:24] LABS: Fluid Laterality PERITONEAL FLUID
[2024-01-06 11:53] LABS: Albumin Body Fluid 0.6 g/dL; Total Protein Body Fluid 1.1 g/dL
[2024-01-06 12:11] LABS: Body Fluid Polynuclear #Cells 0.017; Body Fluid WBC 91 /uL; Monocytes # Body Fluid 0.074; RBC, Body Fluid 0 10^3/uL
== END 2024-01-06 11:29 | disposition home or self-care (01) ==
LOC: GILAB 09:54
PROVIDERS: Nurse Practitioner Family; Radiology Neuroradiology; PCP Family Medicine; Visit Provider Student in an Organized Health Care Education/Training Program
PROC: (CPT 49082; principal; 2024-01-06 11:00)
DX: K70.31 Alcoholic cirrhosis of liver with ascites (principal)
CPT/HCPCS: 49083; 80503; 82042; 84157; 87070; 87075; 87205; 88112; 88305; 89050

== ENCOUNTER 2024-01-14 11:24 | Day surgery (SDC) | payer BC, MEDICAID, SELFPAY ==
--- NOTE | 2024-01-14 11:40 | US_ITS ---
WS: [email or web address] ULTRASOUND-GUIDED THERAPEUTIC AND DIAGNOSTIC PARACENTESIS Procedure, risks, and complications have been explained to the patient. Consent is obtained. Utilizing aseptic technique and 1% buffered lidocaine, a small dermatome was made through which a 5 F rench Yueh catheter was inserted. Approximately 6200 ml of clear peritoneal fluid was obtained witho ut difficulty. No complications encountered. US/US paracentesis abd w [id number] IMPRESSION: Uncomplicated paracentesis yielding 6200 ml of peritoneal fluid.
[2024-01-14 11:41] VITALS: BP 135/86; PULSE 84; RESP 17; TEMP 36.3; O2SAT 96; BMI 22.8
[2024-01-14 13:27] LABS: Body Fluid Polynuclear #Cells 0.015; Body Fluid WBC 95 /uL; RBC, Body Fluid 0 10^3/uL
[2024-01-14 13:36] LABS: Albumin Body Fluid 0.6 g/dL; Total Protein Body Fluid 1.1 g/dL
[2024-01-14 13:37] LABS: Apprearance, Body Fluid CLOUDY; Color, Body Fluid PALE YELLOW; Cyto Order Verification Order Verified
[2024-01-14 13:39] LABS: PATH Referral YES
== END 2024-01-14 13:14 | disposition home or self-care (01) ==
LOC: GILAB 11:25
PROVIDERS: Nurse Practitioner Family; Radiology Diagnostic Radiology; PCP Family Medicine; Visit Provider Student in an Organized Health Care Education/Training Program
PROC: (CPT 49082; principal; 2024-01-14 12:30)
DX: K70.31 Alcoholic cirrhosis of liver with ascites (principal)
CPT/HCPCS: 49083; 80503; 82042; 84157; 87070; 87075; 87205; 88305; 89050

== ENCOUNTER → 2024-01-21 11:15 | Day surgery (SDC) | payer BC, MEDICAID, SELFPAY ==
[2024-01-21 11:35] VITALS: BP 117/73; PULSE 87; RESP 18; TEMP 36.6; O2SAT 100; BMI 22.8
--- NOTE | 2024-01-21 11:40 | US_ITS ---
WS: [email or web address] ULTRASOUND-GUIDED PARACENTESIS CLINICAL INFORMATION: alcoholic cirrhosis of liver with ascites COMPARISON: None. Procedure Informed consent: The risks, benefits, and alternatives of the procedure were discussed with the chele ent. Verbal and written consent was obtained. Timeout: A timeout was performed to confirm the correct patient, procedure, and site. Preparation: A suitable skin site was identified. The patient was prepped and draped in usual sterile fashion. Lidocaine 1% was used for local anesthesia. Catheter: 4 Tajik One-step THE MELTeh catheter. Side: RIGHT lower quadrant. Fluid Volume: 4900 ml Color: Clear DISPOSITION: Discarded safely. Complications: None. Patient disposition: Discharged from the department in stable condition. US/US paracentesis abd w [id number] IMPRESSION: Uncomplicated ultrasound-guided paracentesis. Removal of 4900 cc
[2024-01-21 13:40] LABS: Cyto Order Verification Order Verified
[2024-01-21 14:14] LABS: Albumin Peritoneal Fluid 0.5 g/dL; Total Protein Peritoneal Fluid 1.1 g/dL
== END ==
LOC: GILAB 11:16
PROVIDERS: Radiology Neuroradiology; PCP Family Medicine; Visit Provider Student in an Organized Health Care Education/Training Program
PROC: (CPT 49082; principal; 2024-01-21 12:00)
DX: K70.31 Alcoholic cirrhosis of liver with ascites (principal)
CPT/HCPCS: 49083; 82042; 84157; 87070; 87075; 87205; 88112

== ENCOUNTER 2024-01-28 11:16 | Day surgery (SDC) | payer BC, MEDICAID, SELFPAY ==
[2024-01-28 11:29] VITALS: BP 138/95; PULSE 97; RESP 18; TEMP 36.6; O2SAT 98; BMI 23.0
--- NOTE | 2024-01-28 11:36 | US_ITS ---
WS: [email or web address] ULTRASOUND-GUIDED THERAPEUTIC AND DIAGNOSTIC PARACENTESIS Procedure, risks, and complications have been explained to the patient. Consent is obtained. Utilizing aseptic technique and 1% buffered lidocaine, a small dermatome was made through which a 5 F rench Yueh catheter was inserted. Approximately 7800 ml of clear peritoneal fluid was obtained witho ut difficulty. No complications encountered. US/US paracentesis abd w [id number] IMPRESSION: Uncomplicated paracentesis yielding 7800 ml of peritoneal fluid.
[2024-01-28 13:01] LABS: Appearance, Peritoneal Fluid Cloudy (Clear); Color, Peritoneal Fluid Pale Yellow (Pale Yellow); Cyto Order Verification Order Verified; Pathology Referral Yes
[2024-01-28 13:03] LABS: Mononuclear #, Pertinoneal Fl 0.085 10^3/uL; Polynuclear # Cells, Perit 0.019 10^3/uL; RBC Pertioneal Fluid 0 10^3/uL; WBC Peritoneal Fluid 104 /uL
[2024-01-28 13:20] LABS: Albumin Peritoneal Fluid 0.6 g/dL; Total Protein Body Fluid 1.1 g/dL
== END 2024-01-28 13:03 | disposition home or self-care (01) ==
LOC: GILAB 11:17
PROVIDERS: Radiology Diagnostic Radiology; PCP Family Medicine; Visit Provider Student in an Organized Health Care Education/Training Program
PROC: (CPT 49082; principal; 2024-01-28 12:30)
DX: K70.31 Alcoholic cirrhosis of liver with ascites (principal)
CPT/HCPCS: 49083; 80503; 82042; 84157; 87075; 88112; 88305; 89050

== ENCOUNTER 2024-02-04 11:14 | Day surgery (SDC) | payer BC, MEDICAID, SELFPAY ==
[2024-02-04 11:39] VITALS: BP 129/82; PULSE 87; RESP 18; TEMP 36.4; O2SAT 96; BMI 22.6
--- NOTE | 2024-02-04 11:41 | US_ITS ---
WS: [email or web address] ULTRASOUND-GUIDED PARACENTESIS CLINICAL INFORMATION: alcoholic cirrhosis of liver with ascites COMPARISON: None. Procedure Informed consent: The risks, benefits, and alternatives of the procedure were discussed with the chele ent. Verbal and written consent was obtained. Timeout: A timeout was performed to confirm the correct patient, procedure, and site. Preparation: A suitable skin site was identified. The patient was prepped and draped in usual sterile fashion. Lidocaine 1% was used for local anesthesia. Catheter: 4 Luxembourgish One-step Vida Systemseh catheter. Side: RIGHT lower quadrant. Fluid Volume: 5900 ml Color: Clear yellow DISPOSITION: Discarded safely. Complications: None. Patient disposition: Discharged from the department in stable condition. US/US paracentesis abd w [id number] IMPRESSION: Uncomplicated ultrasound-guided paracentesis. Removal of 5900 cc
[2024-02-04 13:01] LABS: Mononuclear #, Pertinoneal Fl 0.088 10^3/uL; Polynuclear # Cells, Perit 0.018 10^3/uL; RBC Pertioneal Fluid 0 10^3/uL; WBC Peritoneal Fluid 106 /uL
[2024-02-04 13:14] LABS: Cyto Order Verification Order Verified
[2024-02-04 13:15] LABS: Appearance, Peritoneal Fluid Cloudy (Clear); Color, Peritoneal Fluid Pale Yellow (Pale Yellow)
[2024-02-04 13:19] LABS: Albumin Peritoneal Fluid 0.5 g/dL
== END 2024-02-04 13:06 | disposition home or self-care (01) ==
PROVIDERS: Radiology Neuroradiology; PCP Family Medicine; Visit Provider Student in an Organized Health Care Education/Training Program
PROC: (CPT 49082; principal; 2024-02-04 12:00)
DX: K70.31 Alcoholic cirrhosis of liver with ascites (principal)
CPT/HCPCS: 49083; 80503; 82042; 84157; 87070; 87075; 87205; 88112; 88305; 89050

== ENCOUNTER 2024-02-11 11:18 | Day surgery (SDC) | payer BC, MEDICAID, SELFPAY ==
[2024-02-11 11:28] VITALS: BP 138/82; PULSE 86; RESP 18; TEMP 36.2; O2SAT 98
--- NOTE | 2024-02-11 11:32 | US_ITS ---
WS: [email or web address] ULTRASOUND-GUIDED THERAPEUTIC AND DIAGNOSTIC PARACENTESIS Procedure, risks, and complications have been explained to the patient. Consent is obtained. Utilizing aseptic technique and 1% buffered lidocaine, a small dermatome was made through which a 5 F rench Yueh catheter was inserted. Approximately 5300 ml of clear peritoneal fluid was obtained witho ut difficulty. No complications encountered. Specimen collected for analysis as requested. US/US paracentesis abd w [id number] IMPRESSION: Uncomplicated paracentesis yielding 5300 ml of peritoneal fluid.
[2024-02-11 11:43] VITALS: BMI 22.8
[2024-02-11 12:38] LABS: Mononuclear #, Pertinoneal Fl 0.086 10^3/uL; Polynuclear # Cells, Perit 0.017 10^3/uL; RBC Pertioneal Fluid 0 10^3/uL; WBC Peritoneal Fluid 103 /uL
--- NOTE | 2024-02-11 12:53 | PC.NURSE ---
Albumin ordered for amount greater than 5,000. 5,300 peritoneal fluid removed. Patient refused albumin.
[2024-02-11 13:08] LABS: Appearance, Peritoneal Fluid Cloudy (Clear); Color, Peritoneal Fluid Pale Yellow (Pale Yellow)
[2024-02-11 13:24] LABS: Albumin Peritoneal Fluid 0.7 g/dL; Cyto Order Verification Order Verified; Total Protein Peritoneal Fluid 1.3 g/dL
== END 2024-02-11 12:57 | disposition home or self-care (01) ==
LOC: GILAB 11:18
PROVIDERS: Radiology Diagnostic Radiology; PCP Family Medicine; Visit Provider Student in an Organized Health Care Education/Training Program
PROC: (CPT 49082; principal; 2024-02-11 12:30)
DX: K70.31 Alcoholic cirrhosis of liver with ascites (principal)
CPT/HCPCS: 49083; 80503; 82042; 84157; 87070; 87075; 87205; 88112; 89050

== ENCOUNTER 2024-02-18 11:46 | Day surgery (SDC) | payer BC, MEDICAID, SELFPAY ==
--- NOTE | 2024-02-18 11:47 | US_ITS ---
WS: [email or web address] ULTRASOUND-GUIDED PARACENTESIS CLINICAL INFORMATION: Ascites Procedure Informed consent: The risks, benefits, and alternatives of the procedure were discussed with the chele ent. Verbal and written consent was obtained. Timeout: A timeout was performed to confirm the correct patient, procedure, and site. Preparation: A suitable skin site was identified. The patient was prepped and draped in usual sterile fashion. Lidocaine 1% was used for local anesthesia. Catheter: 4 Italian One-step Yueh catheter. Side: RIGHT lower quadrant. Fluid Volume: 5400 ml Color: Clear yellow DISPOSITION: Discarded safely. Complications: None. Patient disposition: Discharged from the department in stable condition. US/US paracentesis abd w [id number] IMPRESSION: Uncomplicated ultrasound-guided paracentesis. Removal of 5400 cc
[2024-02-18 11:52] VITALS: BP 131/89; PULSE 83; RESP 18; TEMP 36.4; O2SAT 97
[2024-02-18 12:49] LABS: Cyto Order Verification Order Verified
[2024-02-18 12:50] LABS: Apprearance, Body Fluid CLOUDY; Color, Body Fluid PALE YELLOW; Fluid Laterality PERITONEAL FLUID; PATH Referral YES
[2024-02-18 13:02] LABS: Body Fluid Polynuclear #Cells 0.017; Body Fluid WBC 125 /uL; Monocytes # Body Fluid 0.108; RBC, Body Fluid 0 10^3/uL
[2024-02-18 13:18] LABS: Total Protein Body Fluid 1.3 g/dL
[2024-02-18 13:19] LABS: Albumin Body Fluid 0.6 g/dL
== END 2024-02-18 13:00 | disposition home or self-care (01) ==
LOC: GILAB 11:46
PROVIDERS: Radiology Neuroradiology; PCP Family Medicine; Visit Provider Student in an Organized Health Care Education/Training Program
PROC: (CPT 49082; principal; 2024-02-18 12:30)
DX: R18.8 Other ascites (principal)
CPT/HCPCS: 49083; 80503; 82042; 84157; 87070; 87075; 87205; 88112; 89050

== ENCOUNTER 2024-02-25 11:29 | Day surgery (SDC) | payer BC, MEDICAID, SELFPAY ==
[2024-02-25 11:39] VITALS: BP 129/80; PULSE 91; RESP 18; TEMP 36.5; O2SAT 99
[2024-02-25 11:40] VITALS: BMI 23.8
--- NOTE | 2024-02-25 11:43 | US_ITS ---
WS: [email or web address] ULTRASOUND-GUIDED THERAPEUTIC AND DIAGNOSTIC PARACENTESIS Procedure, risks, and complications have been explained to the patient. Consent is obtained. Utilizing aseptic technique and 1% buffered lidocaine, a small dermatome was made through which a 5 F rench Yueh catheter was inserted. Approximately 6000 ml of clear peritoneal fluid was obtained witho ut difficulty. No complications encountered. Specimen collected for analysis. US/US paracentesis abd w [id number] IMPRESSION: Uncomplicated paracentesis yielding 6000 ml of peritoneal fluid.
[2024-02-25 12:45] LABS: Body Fluid Polynuclear #Cells 0.014; Body Fluid WBC 115 /uL; Monocytes # Body Fluid 0.101; RBC, Body Fluid 0 10^3/uL
[2024-02-25 12:49] LABS: Cyto Order Verification Order Verified
[2024-02-25 12:50] LABS: Apprearance, Body Fluid CLOUDY; Color, Body Fluid PALE YELLOW; Fluid Laterality PERITONEAL FLUID
[2024-02-25 13:01] LABS: Albumin Peritoneal Fluid 0.5 g/dL; Total Protein Peritoneal Fluid 1.2 g/dL
== END 2024-02-25 13:00 | disposition home or self-care (01) ==
LOC: GILAB 11:29
PROVIDERS: Radiology Diagnostic Radiology; PCP Family Medicine; Visit Provider Student in an Organized Health Care Education/Training Program
PROC: (CPT 49082; principal; 2024-02-25 12:00)
DX: R18.8 Other ascites (principal)
CPT/HCPCS: 49083; 80503; 82042; 84157; 87070; 87075; 87205; 88112; 89050

== ENCOUNTER 2024-03-03 10:36 | Day surgery (SDC) | payer BC, MEDICAID, SELFPAY ==
[2024-03-03 11:05] VITALS: BP 113/67; PULSE 85; RESP 18; TEMP 36.1; O2SAT 98; BMI 23.6
--- NOTE | 2024-03-03 11:08 | US_ITS ---
WS: [email or web address] ULTRASOUND-GUIDED PARACENTESIS CLINICAL INFORMATION: Alcoholic cirrhosis of liver with ascites COMPARISON: None. Procedure Informed consent: The risks, benefits, and alternatives of the procedure were discussed with the chele ent. Verbal and written consent was obtained. Timeout: A timeout was performed to confirm the correct patient, procedure, and site. Preparation: A suitable skin site was identified. The patient was prepped and draped in usual sterile fashion. Lidocaine 1% was used for local anesthesia. Catheter: 4 German One-step Yueh catheter. Side: RIGHT lower quadrant. Fluid Volume: 5400 ml Color: Clear yellow DISPOSITION: Discarded safely. Complications: None. Patient disposition: Discharged from the department in stable condition. US/US paracentesis abd w [id number] IMPRESSION: Uncomplicated ultrasound-guided paracentesis. Removal of 5400 cc
[2024-03-03 13:14] LABS: Cyto Order Verification Order Verified
[2024-03-03 13:15] LABS: Color, Peritoneal Fluid Pale Yellow (Pale Yellow)
[2024-03-03 13:16] LABS: Appearance, Peritoneal Fluid Cloudy (Clear); Pathology Referral Yes
[2024-03-03 13:19] LABS: Mononuclear #, Pertinoneal Fl 0.081 10^3/uL; Polynuclear # Cells, Perit 0.019 10^3/uL; RBC Pertioneal Fluid 0 10^3/uL; WBC Peritoneal Fluid 100 /uL
[2024-03-03 13:36] LABS: Albumin Peritoneal Fluid 0.6 g/dL; Total Protein Peritoneal Fluid 1.2 g/dL
== END 2024-03-03 13:13 | disposition home or self-care (01) ==
PROVIDERS: Radiology Neuroradiology; PCP Family Medicine; Visit Provider Student in an Organized Health Care Education/Training Program
PROC: (CPT 49082; principal; 2024-03-03 12:30)
DX: K70.31 Alcoholic cirrhosis of liver with ascites (principal)
CPT/HCPCS: 49083; 80503; 82042; 84157; 87070; 87075; 87205; 88112; 88305; 89050

== ENCOUNTER 2024-03-10 11:24 | Day surgery (SDC) | payer BC, MEDICAID, SELFPAY ==
[2024-03-10 11:36] VITALS: BP 140/85; PULSE 89; RESP 16; TEMP 36.4; O2SAT 98; BMI 22.1
--- NOTE | 2024-03-10 11:38 | US_ITS ---
WS: [email or web address] ULTRASOUND-GUIDED THERAPEUTIC AND DIAGNOSTIC PARACENTESIS Procedure, risks, and complications have been explained to the patient. Consent is obtained. Utilizing aseptic technique and 1% buffered lidocaine, a small dermatome was made through which a 5 F rench Yueh catheter was inserted. Approximately 6600 ml of clear peritoneal fluid was obtained witho ut difficulty. No complications encountered. Specimen collected for analysis. US/US paracentesis abd w [id number] IMPRESSION: Uncomplicated paracentesis yielding 6600 ml of peritoneal fluid.
[2024-03-10 12:36] LABS: Appearance, Peritoneal Fluid Cloudy (Clear); Color, Peritoneal Fluid Pale Yellow (Pale Yellow); Cyto Order Verification Order Verified; Mononuclear #, Pertinoneal Fl 0.087 10^3/uL; Pathology Referral Yes; Polynuclear # Cells, Perit 0.014 10^3/uL; RBC Pertioneal Fluid 0 10^3/uL; WBC Peritoneal Fluid 101 /uL
[2024-03-10 12:56] LABS: Albumin Peritoneal Fluid 0.5 g/dL; Total Protein Peritoneal Fluid 1.1 g/dL
== END 2024-03-10 12:47 | disposition home or self-care (01) ==
LOC: GILAB 11:25
PROVIDERS: Radiology Diagnostic Radiology; PCP Family Medicine; Visit Provider Student in an Organized Health Care Education/Training Program
PROC: (CPT 49082; principal; 2024-03-10 12:00)
DX: R18.8 Other ascites (principal)
CPT/HCPCS: 49083; 80503; 82042; 84157; 87070; 87075; 87205; 88112; 88305; 89050

== ENCOUNTER → 2024-04-07 11:31 | Day surgery (SDC) | payer BC, MEDICAID, SELFPAY ==
--- NOTE | 2024-04-07 11:42 | US_ITS ---
WS: [email or web address] ULTRASOUND-GUIDED THERAPEUTIC AND DIAGNOSTIC PARACENTESIS Procedure, risks, and complications have been explained to the patient. Consent is obtained. Utilizing aseptic technique and 1% buffered lidocaine, a small dermatome was made through which a 5 Canadian Yueh catheter was inserted. Approximately 6010 ml of clear peritoneal fluid was obtained without difficulty. No complications encountered. Peritoneal fluid collected for analysis. US/US paracentesis abd w [id number] IMPRESSION: Uncomplicated paracentesis yielding 6010 ml of peritoneal fluid.
[2024-04-07 11:43] VITALS: BP 133/89; PULSE 84; RESP 16; TEMP 36.5; O2SAT 99; BMI 21.4
[2024-04-07 13:29] LABS: Cyto Order Verification Order Verified
[2024-04-07 13:45] LABS: Albumin Body Fluid 1.1 g/dL; Total Protein Body Fluid 2.5 g/dL
== END ==
LOC: GILAB 11:32
PROVIDERS: Radiology Diagnostic Radiology; PCP Family Medicine; Visit Provider Student in an Organized Health Care Education/Training Program
PROC: (CPT 49082; principal; 2024-04-07 12:00)
DX: K70.31 Alcoholic cirrhosis of liver with ascites (principal)
CPT/HCPCS: 49083; 82042; 84157; 87070; 87075; 87205; 88112; 88305

== ENCOUNTER 2024-04-21 11:41 | Day surgery (SDC) | payer BC, MEDICAID, SELFPAY ==
--- NOTE | 2024-04-21 11:48 | US_ITS ---
WS: [email or web address] ULTRASOUND-GUIDED PARACENTESIS CLINICAL INFORMATION: ascites COMPARISON: None. Procedure Informed consent: The risks, benefits, and alternatives of the procedure were discussed with the patient. Verbal and written consent was obtained. Timeout: A timeout was performed to confirm the correct patient, procedure, and site. Preparation: A suitable skin site was identified. The patient was prepped and draped in usual sterile fashion. Lidocaine 1% was used for local anesthesia. Catheter: 4 Albanian One-step Yueh catheter. Side: RIGHT lower quadrant. Fluid Volume: 6250 ml Color: Clear yellow DISPOSITION: Discarded safely. Complications: None. Patient disposition: Discharged from the department in stable condition. US/US paracentesis abd w [id number] IMPRESSION: Uncomplicated ultrasound-guided paracentesis. Removal of 6250 cc
[2024-04-21 11:53] VITALS: BP 146/91; PULSE 88; RESP 18; TEMP 36.9; O2SAT 99; BMI 21.9
[2024-04-21 12:45] LABS: Mononuclear #, Pertinoneal Fl 0.089 10^3/uL; Polynuclear # Cells, Perit 0.012 10^3/uL; RBC Pertioneal Fluid 0 10^3/uL; WBC Peritoneal Fluid 101 /uL
[2024-04-21 12:48] LABS: Appearance, Peritoneal Fluid Cloudy (Clear); Color, Peritoneal Fluid Pale Yellow (Pale Yellow); Cyto Order Verification No Order; Pathology Referral Yes
== END 2024-04-21 13:05 | disposition home or self-care (01) ==
LOC: GILAB 11:42
PROVIDERS: Radiology Neuroradiology; PCP Family Medicine; Visit Provider Student in an Organized Health Care Education/Training Program
PROC: (CPT 49082; principal; 2024-04-21 12:00)
DX: R18.8 Other ascites (principal)
CPT/HCPCS: 49083; 80503; 89050

== ENCOUNTER 2024-04-28 11:33 | Day surgery (SDC) | payer BC, MEDICAID, SELFPAY ==
[2024-04-28 11:46] VITALS: BP 138/83; PULSE 82; RESP 8; TEMP 36.3; O2SAT 98
[2024-04-28 11:49] VITALS: BMI 22.8
--- NOTE | 2024-04-28 12:08 | US_ITS ---
WS: [email or web address] ULTRASOUND-GUIDED PARACENTESIS CLINICAL INFORMATION: ascites COMPARISON: None. Procedure Informed consent: The risks, benefits, and alternatives of the procedure were discussed with the patient. Verbal and written consent was obtained. Timeout: A timeout was performed to confirm the correct patient, procedure, and site. Preparation: A suitable skin site was identified. The patient was prepped and draped in usual sterile fashion. Lidocaine 1% was used for local anesthesia. Catheter: 4 Hebrew One-step Yueh catheter. Side: RIGHT lower quadrant. Fluid Volume: 5000 ml Color: Clear yellow DISPOSITION: Discarded safely. Complications: None. Patient disposition: Discharged from the department in stable condition. US/US paracentesis abd w [id number] IMPRESSION: Uncomplicated ultrasound-guided paracentesis. Removal of 5000 cc
[2024-04-28 12:49] LABS: Appearance, Peritoneal Fluid Cloudy (Clear); Color, Peritoneal Fluid Pale Yellow (Pale Yellow); Cyto Order Verification No Order; Pathology Referral Yes
[2024-04-28 12:52] LABS: Mononuclear #, Pertinoneal Fl 0.081 10^3/uL; Polynuclear # Cells, Perit 0.009 10^3/uL; RBC Pertioneal Fluid 0 10^3/uL; WBC Peritoneal Fluid 90 /uL
== END 2024-04-28 13:00 | disposition home or self-care (01) ==
LOC: GILAB 11:33
PROVIDERS: Radiology Neuroradiology; PCP Family Medicine; Visit Provider Student in an Organized Health Care Education/Training Program
PROC: (CPT 49082; principal; 2024-04-28 12:00)
DX: R18.8 Other ascites (principal)
CPT/HCPCS: 49083; 80503; 89050

== ENCOUNTER → 2024-05-05 11:33 | Day surgery (SDC) | payer BC, MEDICAID, SELFPAY ==
[2024-05-05 11:46] VITALS: BP 129/88; PULSE 86; RESP 18; TEMP 36.6; O2SAT 95; BMI 23.3
--- NOTE | 2024-05-05 12:00 | US_ITS ---
WS: [email or web address] ULTRASOUND-GUIDED THERAPEUTIC AND DIAGNOSTIC PARACENTESIS Procedure, risks, and complications have been explained to the patient. Consent is obtained. Utilizing aseptic technique and 1% buffered lidocaine, a small dermatome was made through which a 5 Cymraes Yueh catheter was inserted. Approximately 5400 ml of clear peritoneal fluid was obtained without difficulty. No complications encountered. Specimen collected for analysis. US/US paracentesis abd w [id number] IMPRESSION: Uncomplicated paracentesis yielding 5400 ml of peritoneal fluid.
[2024-05-05 13:05] LABS: Appearance, Peritoneal Fluid Cloudy (Clear); Color, Peritoneal Fluid Pale Yellow (Pale Yellow); Cyto Order Verification No Order
[2024-05-05 13:06] LABS: Pathology Referral Yes
[2024-05-05 13:11] LABS: Mononuclear #, Pertinoneal Fl 0.074 10^3/uL; RBC Pertioneal Fluid 0 10^3/uL; WBC Peritoneal Fluid 84 /uL
== END ==
PROVIDERS: Radiology Diagnostic Radiology; PCP Family Medicine; Visit Provider Student in an Organized Health Care Education/Training Program
PROC: (CPT 49082; principal; 2024-05-05 12:00)
DX: K70.31 Alcoholic cirrhosis of liver with ascites (principal)
CPT/HCPCS: 49083; 80503; 89050

== ENCOUNTER 2024-05-12 11:31 | Day surgery (SDC) | payer BC, MEDICAID, SELFPAY ==
[2024-05-12 11:42] VITALS: BP 140/87; PULSE 85; RESP 16; TEMP 36.3; O2SAT 100
--- NOTE | 2024-05-12 11:44 | US_ITS ---
WS: [email or web address] ULTRASOUND-GUIDED PARACENTESIS CLINICAL INFORMATION: Ascites COMPARISON: None. Procedure Informed consent: The risks, benefits, and alternatives of the procedure were discussed with the patient. Verbal and written consent was obtained. Timeout: A timeout was performed to confirm the correct patient, procedure, and site. Preparation: A suitable skin site was identified. The patient was prepped and draped in usual sterile fashion. Lidocaine 1% was used for local anesthesia. Catheter: 4 Hungarian One-step Yueh catheter. Side: RIGHT lower quadrant. Fluid Volume: 4000 ml Color: Clear yellow DISPOSITION: Discarded safely. Complications: None. Patient disposition: Discharged from the department in stable condition. US/US paracentesis abd w [id number] IMPRESSION: Uncomplicated ultrasound-guided paracentesis. Removal of 4000 cc
[2024-05-12 12:50] LABS: Body Fluid Polynuclear #Cells 0.017; Body Fluid WBC 113 /uL; Monocytes # Body Fluid 0.096; RBC, Body Fluid 0 10^3/uL
[2024-05-12 13:18] LABS: Cyto Order Verification No Order
[2024-05-12 13:19] LABS: Apprearance, Body Fluid CLOUDY; Color, Body Fluid PALE YELLOW
== END 2024-05-12 12:45 | disposition home or self-care (01) ==
LOC: GILAB 11:31
PROVIDERS: Radiology Neuroradiology; PCP Family Medicine; Visit Provider Student in an Organized Health Care Education/Training Program
PROC: (CPT 49082; principal; 2024-05-12 12:00)
DX: R18.8 Other ascites (principal)
CPT/HCPCS: 49083; 80503; 89050

== ENCOUNTER 2024-05-19 11:19 | Day surgery (SDC) | payer BC, MEDICAID, SELFPAY ==
--- NOTE | 2024-05-19 11:27 | US_ITS ---
WS: [email or web address] ULTRASOUND-GUIDED THERAPEUTIC AND DIAGNOSTIC PARACENTESIS Procedure, risks, and complications have been explained to the patient. Consent is obtained. Utilizing aseptic technique and 1% buffered lidocaine, a small dermatome was made through which a 5 Latvian Yueh catheter was inserted. Approximately 4500 ml of clear peritoneal fluid was obtained without difficulty. No complications encountered. Specimen collected for analysis. US/US paracentesis abd w [id number] IMPRESSION: Uncomplicated paracentesis yielding 4500 ml of peritoneal fluid.
[2024-05-19 11:31] VITALS: BP 132/84; PULSE 80; RESP 16; TEMP 36.2; O2SAT 100; BMI 22.8
[2024-05-19 12:33] LABS: Cyto Order Verification No Order
[2024-05-19 12:37] LABS: Body Fluid Polynuclear #Cells 0.013; Body Fluid WBC 90 /uL; Monocytes # Body Fluid 0.077; RBC, Body Fluid 0 10^3/uL
[2024-05-19 12:38] LABS: Apprearance, Body Fluid CLOUDY; Color, Body Fluid PALE YELLOW
[2024-05-19 12:39] LABS: Fluid Laterality PERITONEAL FLUID; PATH Referral YES
== END 2024-05-19 12:37 | disposition home or self-care (01) ==
LOC: GILAB 11:22
PROVIDERS: Radiology Diagnostic Radiology; PCP Family Medicine; Visit Provider Student in an Organized Health Care Education/Training Program
PROC: (CPT 49082; principal; 2024-05-19 12:00)
DX: K70.31 Alcoholic cirrhosis of liver with ascites (principal)
CPT/HCPCS: 49083; 80503; 87070; 87075; 87205; 89050

== ENCOUNTER → 2024-06-02 11:22 | Day surgery (SDC) | payer BC, MEDICAID, SELFPAY ==
[2024-06-02 11:36] VITALS: BP 140/90; PULSE 89; RESP 16; TEMP 36.6; O2SAT 95
[2024-06-02 11:40] VITALS: BMI 22.8
--- NOTE | 2024-06-02 11:42 | US_ITS ---
WS: [email or web address] ULTRASOUND-GUIDED THERAPEUTIC AND DIAGNOSTIC PARACENTESIS Procedure, risks, and complications have been explained to the patient. Consent is obtained. Utilizing aseptic technique and 1% buffered lidocaine, a small dermatome was made through which a 5 Costa Rican Yueh catheter was inserted. Approximately 6600 ml of clear peritoneal fluid was obtained without difficulty. No complications encountered. US/US paracentesis abd w [id number] IMPRESSION: Uncomplicated paracentesis yielding 6600 ml of peritoneal fluid.
[2024-06-02 13:01] LABS: Appearance, Peritoneal Fluid Clear (Clear); Color, Peritoneal Fluid Pale Yellow (Pale Yellow); Cyto Order Verification No Order
[2024-06-02 13:02] LABS: Pathology Referral Yes
--- NOTE | 2024-06-02 13:03 | PC.NURSE ---
Pt declined to have albumin.
[2024-06-02 13:06] LABS: Mononuclear #, Pertinoneal Fl 0.067 10^3/uL; RBC Pertioneal Fluid 0 10^3/uL; WBC Peritoneal Fluid 77 /uL
== END ==
LOC: GILAB 11:23
PROVIDERS: Radiology Diagnostic Radiology; Student in an Organized Health Care Education/Training Program; PCP Family Medicine
PROC: (CPT 49082; principal; 2024-06-02 12:00)
DX: K70.31 Alcoholic cirrhosis of liver with ascites (principal)
CPT/HCPCS: 49083; 80503; 89050

== ENCOUNTER 2024-06-09 11:25 | Day surgery (SDC) | payer BC, MEDICAID, SELFPAY ==
[2024-06-09 11:33] VITALS: BP 135/84; PULSE 84; RESP 16; TEMP 36.4; O2SAT 97
--- NOTE | 2024-06-09 11:35 | US_ITS ---
WS: [email or web address] ULTRASOUND-GUIDED PARACENTESIS CLINICAL INFORMATION: Ascites COMPARISON: None. Procedure Informed consent: The risks, benefits, and alternatives of the procedure were discussed with the patient. Verbal and written consent was obtained. Timeout: A timeout was performed to confirm the correct patient, procedure, and site. Preparation: A suitable skin site was identified. The patient was prepped and draped in usual sterile fashion. Lidocaine 1% was used for local anesthesia. Catheter: 4 Vietnamese One-step Yueh catheter. Side: LEFT lower quadrant. Fluid Volume: 6250 ml Color: Clear yellow DISPOSITION: Discarded safely. Complications: None. Patient disposition: Discharged from the department in stable condition. US/US paracentesis abd w [id number] IMPRESSION: Uncomplicated ultrasound-guided paracentesis. Removal of 6250cc
[2024-06-09 12:43] LABS: Cyto Order Verification Order Verified
[2024-06-09 12:48] LABS: Body Fluid WBC 89 /uL; Monocytes # Body Fluid 0.079; RBC, Body Fluid 0 10^3/uL
[2024-06-09 12:50] LABS: Apprearance, Body Fluid CLOUDY; Color, Body Fluid PALE YELLOW; Fluid Laterality PARA FLUID; PATH Referral YES
== END 2024-06-09 13:03 | disposition home or self-care (01) ==
LOC: GILAB 11:26
PROVIDERS: Radiology Neuroradiology; PCP Family Medicine; Visit Provider Student in an Organized Health Care Education/Training Program
PROC: (CPT 49082; principal; 2024-06-09 12:00)
DX: K70.31 Alcoholic cirrhosis of liver with ascites (principal)
CPT/HCPCS: 49083; 80503; 87070; 87075; 87205; 89050

== ENCOUNTER 2024-06-16 11:27 | Day surgery (SDC) | payer BC, MEDICAID, SELFPAY ==
--- NOTE | 2024-06-16 11:32 | US_ITS ---
WS: [email or web address] ULTRASOUND-GUIDED THERAPEUTIC AND DIAGNOSTIC PARACENTESIS Procedure, risks, and complications have been explained to the patient. Consent is obtained. Utilizing aseptic technique and 1% buffered lidocaine, a small dermatome was made through which a 5 Monegasque Yueh catheter was inserted. Approximately 7300 ml of clear peritoneal fluid was obtained without difficulty. No complications encountered. US/US paracentesis abd w [id number] IMPRESSION: Uncomplicated paracentesis yielding 7300 ml of peritoneal fluid.
[2024-06-16 11:46] VITALS: BP 150/100; PULSE 102; RESP 16; TEMP 36.4; O2SAT 99
[2024-06-16 11:49] VITALS: BMI 23.3
[2024-06-16 12:46] LABS: Appearance, Peritoneal Fluid Cloudy (Clear); Color, Peritoneal Fluid Pale Yellow (Pale Yellow); Cyto Order Verification No Order; Pathology Referral Yes
[2024-06-16 12:47] LABS: Mononuclear #, Pertinoneal Fl 0.065 10^3/uL; Polynuclear # Cells, Perit 0.008 10^3/uL; RBC Pertioneal Fluid 0 10^3/uL; WBC Peritoneal Fluid 73 /uL
== END 2024-06-16 13:04 | disposition home or self-care (01) ==
PROVIDERS: Radiology Diagnostic Radiology; PCP Family Medicine; Visit Provider Student in an Organized Health Care Education/Training Program
PROC: (CPT 49082; principal; 2024-06-16 12:00)
DX: R18.8 Other ascites (principal)
CPT/HCPCS: 49083; 80503; 87070; 87075; 87205; 89050

== ENCOUNTER → 2024-06-20 11:14 | Day surgery (SDC) | payer BC, MEDICAID, SELFPAY ==
[2024-06-20 11:24] VITALS: BP 136/83; PULSE 94; RESP 18; TEMP 36.5; O2SAT 98; BMI 23.8
--- NOTE | 2024-06-20 11:47 | US_ITS ---
WS: [email or web address] ULTRASOUND-GUIDED PARACENTESIS CLINICAL INFORMATION: ASCITES COMPARISON: None. Procedure Informed consent: The risks, benefits, and alternatives of the procedure were discussed with the patient. Verbal and written consent was obtained. Timeout: A timeout was performed to confirm the correct patient, procedure, and site. Preparation: A suitable skin site was identified. The patient was prepped and draped in usual sterile fashion. Lidocaine 1% was used for local anesthesia. Catheter: 4 Uzbek One-step Yueh catheter. Side: RIGHT lower quadrant. Fluid Volume: 5500 ml Color: Clear yellow DISPOSITION: Discarded safely. Complications: None. Patient disposition: Discharged from the department in stable condition. US/US paracentesis abd w [id number] IMPRESSION: Uncomplicated ultrasound-guided paracentesis. Removal of 5500 cc
[2024-06-20 13:22] LABS: Cyto Order Verification No Order
[2024-06-20 13:24] LABS: Mononuclear #, Pertinoneal Fl 0.073 10^3/uL; Polynuclear # Cells, Perit 0.014 10^3/uL; RBC Pertioneal Fluid 0 10^3/uL; WBC Peritoneal Fluid 87 /uL
[2024-06-20 13:40] LABS: Appearance, Peritoneal Fluid Cloudy (Clear); Color, Peritoneal Fluid Pale Yellow (Pale Yellow); Pathology Referral Yes
== END ==
LOC: GILAB 11:14
PROVIDERS: Radiology Neuroradiology; Student in an Organized Health Care Education/Training Program; PCP Family Medicine
PROC: (CPT 49082; principal; 2024-06-20 13:00)
DX: R18.8 Other ascites (principal)
CPT/HCPCS: 49083; 80503; 89050

== ENCOUNTER 2024-07-07 11:27 | Day surgery (SDC) | payer BC, MEDICAID, SELFPAY ==
--- NOTE | 2024-07-07 11:35 | US_ITS ---
WS: [email or web address] ULTRASOUND-GUIDED PARACENTESIS CLINICAL INFORMATION: alcoholic cirrhosis of liver with ascites COMPARISON: None. Procedure Informed consent: The risks, benefits, and alternatives of the procedure were discussed with the patient. Verbal and written consent was obtained. Timeout: A timeout was performed to confirm the correct patient, procedure, and site. Preparation: A suitable skin site was identified. The patient was prepped and draped in usual sterile fashion. Lidocaine 1% was used for local anesthesia. Catheter: 4 Bulgarian One-step Endoarteh catheter. Side: RIGHT lower quadrant. Fluid Volume: 6100 ml Color: Clear yellow DISPOSITION: Discarded safely. Complications: None. Patient disposition: Discharged from the department in stable condition. US/US paracentesis abd w [id number] IMPRESSION: Uncomplicated ultrasound-guided paracentesis. Removal of 6100 cc
[2024-07-07 11:50] VITALS: BP 135/89; PULSE 87; RESP 18; TEMP 36.2; O2SAT 96
[2024-07-07 12:29] VITALS: BMI 23.8
[2024-07-07 13:40] LABS: Body Fluid Polynuclear #Cells 0.011; Body Fluid WBC 76 /uL; Monocytes # Body Fluid 0.065; RBC, Body Fluid 0 10^3/uL
[2024-07-07 13:53] LABS: Apprearance, Body Fluid CLOUDY; Color, Body Fluid PALE YELLOW; Fluid Laterality PARA FLUID; PATH Referral YES
[2024-07-07 13:55] LABS: Cyto Order Verification No Order
== END 2024-07-07 13:13 | disposition home or self-care (01) ==
LOC: GILAB 11:27
PROVIDERS: Radiology Neuroradiology; PCP Family Medicine; Visit Provider Student in an Organized Health Care Education/Training Program
PROC: (CPT 49082; principal; 2024-07-07 12:00)
DX: K70.31 Alcoholic cirrhosis of liver with ascites (principal)
CPT/HCPCS: 49083; 80503; 89050

== ENCOUNTER 2024-07-14 11:02 | Day surgery (SDC) | payer BC, MEDICAID, SELFPAY ==
--- NOTE | 2024-07-14 11:17 | US_ITS ---
WS: [email or web address] ULTRASOUND-GUIDED THERAPEUTIC PARACENTESIS Procedure, risks, and complications have been explained to the patient. Consent is obtained. Utilizing aseptic technique and 1% buffered lidocaine, a small dermatome was made through which a 5 Russian Yueh catheter was inserted. Approximately 4700 ml of clear peritoneal fluid was obtained without difficulty. No complications encountered. US/US paracentesis abd w [id number] IMPRESSION: Uncomplicated paracentesis yielding 4700 ml of peritoneal fluid.
[2024-07-14 11:29] VITALS: BP 136/85; PULSE 79; RESP 18; TEMP 37.1; O2SAT 99; BMI 23.3
[2024-07-14 12:22] LABS: Cyto Order Verification No Order
[2024-07-14 12:23] LABS: Color, Peritoneal Fluid Pale Yellow (Pale Yellow)
[2024-07-14 12:24] LABS: Appearance, Peritoneal Fluid Cloudy (Clear); Mononuclear #, Pertinoneal Fl 0.099 10^3/uL; Pathology Referral Yes; Polynuclear # Cells, Perit 0.007 10^3/uL; RBC Pertioneal Fluid 0 10^3/uL; WBC Peritoneal Fluid 106 /uL
== END 2024-07-14 12:29 | disposition home or self-care (01) ==
PROVIDERS: Radiology Diagnostic Radiology; PCP Family Medicine; Visit Provider Student in an Organized Health Care Education/Training Program
PROC: (CPT 49082; principal; 2024-07-14 12:00)
DX: K70.31 Alcoholic cirrhosis of liver with ascites (principal)
CPT/HCPCS: 49083; 80503; 89050

== ENCOUNTER → 2024-07-21 11:28 | Day surgery (SDC) | payer BC, MEDICAID, SELFPAY ==
--- NOTE | 2024-07-21 11:37 | US_ITS ---
WS: [email or web address] ULTRASOUND-GUIDED PARACENTESIS CLINICAL INFORMATION: alcoholic cirrhosis of liver with ascites COMPARISON: None. Procedure Informed consent: The risks, benefits, and alternatives of the procedure were discussed with the patient. Verbal and written consent was obtained. Timeout: A timeout was performed to confirm the correct patient, procedure, and site. Preparation: A suitable skin site was identified. The patient was prepped and draped in usual sterile fashion. Lidocaine 1% was used for local anesthesia. Catheter: 4 Maori One-step NuVasiveeh catheter. Side: RIGHT lower quadrant. Fluid Volume: 3900 ml Color: Clear yellow DISPOSITION: Discarded safely. Complications: None. Patient disposition: Discharged from the department in stable condition. US/US paracentesis abd w [id number] IMPRESSION: Uncomplicated ultrasound-guided paracentesis. Removal of 3900 cc
[2024-07-21 11:40] VITALS: BMI 22.8
[2024-07-21 11:41] VITALS: BP 127/84; PULSE 76; RESP 16; TEMP 36.3; O2SAT 99
[2024-07-21 12:59] LABS: Cyto Order Verification No Order; Mononuclear #, Pertinoneal Fl 0.115 10^3/uL; Polynuclear # Cells, Perit 0.014 10^3/uL; RBC Pertioneal Fluid 0 10^3/uL; WBC Peritoneal Fluid 129 /uL
[2024-07-21 13:11] LABS: Appearance, Peritoneal Fluid Cloudy (Clear); Color, Peritoneal Fluid Pale Yellow (Pale Yellow)
== END ==
PROVIDERS: Radiology Neuroradiology; PCP Family Medicine; Visit Provider Student in an Organized Health Care Education/Training Program
PROC: (CPT 49082; principal; 2024-07-21 12:00)
DX: K70.31 Alcoholic cirrhosis of liver with ascites (principal)
CPT/HCPCS: 49083; 80503; 89050

== ENCOUNTER → 2024-07-28 11:13 | Day surgery (SDC) | payer BC, MEDICAID, SELFPAY ==
[2024-07-28 11:29] VITALS: BP 132/104; PULSE 78; RESP 18; TEMP 36.2; O2SAT 98; BMI 23.3
--- NOTE | 2024-07-28 11:32 | US_ITS ---
WS: [email or web address] Abdominal ultrasound, limited. History: Evaluate for ascites. Comparison: None. All 4 quadrants are imaged by ultrasound to evaluate for ascites. There is a small to moderate amount of ascites noted. The amount of ascites is not as much is typically noted prior to paracentesis for this patient. Patient has decided not to proceed with paracentesis today. US/US abdomen lmt fluid [id number] IMPRESSION: Small to moderate amount of ascites. Patient has elected not to proceed with pa racentesis today.
== END ==
LOC: GILAB 11:13
PROVIDERS: Radiology Diagnostic Radiology; PCP Family Medicine; Visit Provider Student in an Organized Health Care Education/Training Program
PROC: (CPT 49082; principal; 2024-07-28 12:30)
DX: K70.31 Alcoholic cirrhosis of liver with ascites (principal); Z53.20 Procedure and treatment not carried out because of patient's decision for unspecified reasons
CPT/HCPCS: 49083; 76705

== ENCOUNTER 2024-08-04 11:04 | Day surgery (SDC) | payer BC, MEDICAID, SELFPAY ==
[2024-08-04 11:24] VITALS: BP 130/83; PULSE 82; RESP 17; TEMP 36.2; O2SAT 98; BMI 20.5
--- NOTE | 2024-08-04 11:29 | US_ITS ---
WS: [email or web address] ULTRASOUND-GUIDED PARACENTESIS CLINICAL INFORMATION: alcoholic cirrhosis of liver with ascites Procedure Informed consent: The risks, benefits, and alternatives of the procedure were discussed with the patient. Verbal and written consent was obtained. Timeout: A timeout was performed to confirm the correct patient, procedure, and site. Preparation: A suitable skin site was identified. The patient was prepped and draped in usual sterile fashion. Lidocaine 1% was used for local anesthesia. Catheter: 4 Qatari One-step Yueh catheter. Side: RIGHT Lower quadrant. Fluid Volume: 4400 ml Color: Clear yellow DISPOSITION: Discarded safely. Complications: None. Patient disposition: Discharged from the department in stable condition. US/US paracentesis abd w [id number] IMPRESSION: Uncomplicated ultrasound-guided paracentesis. Removal of 4400 cc
[2024-08-04 12:55] LABS: Color, Peritoneal Fluid Pale Yellow (Pale Yellow); Cyto Order Verification No Order; Mononuclear #, Pertinoneal Fl 0.084 10^3/uL; Polynuclear # Cells, Perit 0.013 10^3/uL; RBC Pertioneal Fluid 0 10^3/uL; WBC Peritoneal Fluid 97 /uL
[2024-08-04 12:56] LABS: Appearance, Peritoneal Fluid Hazy (Clear); Pathology Referral Yes
== END 2024-08-04 12:49 | disposition home or self-care (01) ==
LOC: GILAB 11:04
PROVIDERS: Radiology Neuroradiology; PCP Family Medicine; Visit Provider Student in an Organized Health Care Education/Training Program
PROC: (CPT 49082; principal; 2024-08-04 12:00)
DX: K70.31 Alcoholic cirrhosis of liver with ascites (principal)
CPT/HCPCS: 49083; 80503; 89050

== ENCOUNTER 2024-08-18 11:09 | Day surgery (SDC) | payer BC, MEDICAID, SELFPAY ==
[2024-08-18 11:17] VITALS: BMI 20.5
--- NOTE | 2024-08-18 11:19 | US_ITS ---
WS: [email or web address] ULTRASOUND-GUIDED PARACENTESIS CLINICAL INFORMATION: alcoholic cirrhosis of liver with ascites COMPARISON: None. Procedure Informed consent: The risks, benefits, and alternatives of the procedure were discussed with the patient. Verbal and written consent was obtained. Timeout: A timeout was performed to confirm the correct patient, procedure, and site. Preparation: A suitable skin site was identified. The patient was prepped and draped in usual sterile fashion. Lidocaine 1% was used for local anesthesia. Catheter: 4 Irish One-step The Etailerseh catheter. Side: RIGHT lower quadrant. Fluid Volume: 5150 ml Color: Clear yellow DISPOSITION: Discarded safely. Complications: None. Patient disposition: Discharged from the department in stable condition. US/US paracentesis abd w [id number] IMPRESSION: Uncomplicated ultrasound-guided paracentesis. Removal of 5150 cc
[2024-08-18 11:22] VITALS: BP 144/73; PULSE 90; RESP 18; TEMP 36.4; O2SAT 95
[2024-08-18 12:37] LABS: Cyto Order Verification No Order
[2024-08-18 12:38] LABS: Appearance, Peritoneal Fluid Cloudy (Clear); Color, Peritoneal Fluid Pale Yellow (Pale Yellow); Pathology Referral Yes
[2024-08-18 12:43] LABS: Mononuclear #, Pertinoneal Fl 0.099 10^3/uL; Mononuclear %, Pertinoneal Fl 94.300 %; Polynuclear # Cells, Perit 0.006 10^3/uL; Polynuclear % Cells,Perit 5.700 %; RBC Pertioneal Fluid 0 10^3/uL; WBC Peritoneal Fluid 105 /uL
== END 2024-08-18 12:49 | disposition home or self-care (01) ==
LOC: GILAB 11:09
PROVIDERS: Radiology Neuroradiology; PCP Family Medicine; Visit Provider Student in an Organized Health Care Education/Training Program
PROC: (CPT 49082; principal; 2024-08-18 12:00)
DX: K70.31 Alcoholic cirrhosis of liver with ascites (principal)
CPT/HCPCS: 49083; 80503; 87070; 87075; 87205; 89050

== ENCOUNTER → 2024-09-08 11:13 | Day surgery (SDC) | payer BC, MEDICAID, SELFPAY ==
[2024-09-08 11:29] VITALS: BP 141/86; PULSE 81; RESP 18; TEMP 36.1; O2SAT 98; BMI 22.8
--- NOTE | 2024-09-08 11:29 | US_ITS ---
WS: [email or web address] ULTRASOUND-GUIDED THERAPEUTIC PARACENTESIS Procedure, risks, and complications have been explained to the patient. Consent is obtained. Utilizing aseptic technique and 1% buffered lidocaine, a small dermatome was made through which a 5 Mongolian Yueh catheter was inserted. Approximately 5400 ml of clear peritoneal fluid was obtained without difficulty. No complications encountered. US/US paracentesis abd w [id number] IMPRESSION: Uncomplicated paracentesis yielding 5400 ml of peritoneal fluid.
[2024-09-08 13:18] LABS: Cyto Order Verification No Order
[2024-09-08 13:24] LABS: Mononuclear #, Pertinoneal Fl 0.080 10^3/uL; Mononuclear %, Pertinoneal Fl 92.000 %; Polynuclear # Cells, Perit 0.007 10^3/uL; Polynuclear % Cells,Perit 8.000 %; RBC Pertioneal Fluid 0 10^3/uL; WBC Peritoneal Fluid 87 /uL
[2024-09-08 13:38] LABS: Color, Peritoneal Fluid Pale Yellow (Pale Yellow)
[2024-09-08 13:39] LABS: Appearance, Peritoneal Fluid Hazy (Clear); Pathology Referral Yes
== END ==
LOC: GILAB 11:13
PROVIDERS: Radiology Diagnostic Radiology; PCP Family Medicine; Visit Provider Student in an Organized Health Care Education/Training Program
PROC: (CPT 49082; principal; 2024-09-08 12:00)
DX: K70.31 Alcoholic cirrhosis of liver with ascites (principal)
CPT/HCPCS: 49083; 80503; 87070; 87075; 87205; 89050

== ENCOUNTER 2024-09-22 11:26 | Day surgery (SDC) | payer BC, MEDICAID, SELFPAY ==
--- NOTE | 2024-09-22 11:47 | US_ITS ---
WS: [email or web address] ULTRASOUND-GUIDED THERAPEUTIC PARACENTESIS Procedure, risks, and complications have been explained to the patient. Consent is obtained. Utilizing aseptic technique and 1% buffered lidocaine, a small dermatome was made through which a 5 Cypriot Yueh catheter was inserted. Approximately 5600 ml of clear peritoneal fluid was obtained without difficulty. No complications encountered. US/US paracentesis abd w [id number] IMPRESSION: Uncomplicated paracentesis yielding 5600 ml of peritoneal fluid.
[2024-09-22 11:52] VITALS: BP 138/81; PULSE 87; RESP 16; TEMP 36.4; O2SAT 96
[2024-09-22 13:03] LABS: Body Fluid Polynuclear #Cells 0.012; Monocytes # Body Fluid 0.084; Mononuclear WBC Body Fluid % 87.500 %; Polynuclear WBC Body Fluid % 12.500 %
[2024-09-22 13:34] LABS: Cyto Order Verification No Order
[2024-09-22 13:52] LABS: Apprearance, Body Fluid CLOUDY; Color, Body Fluid PALE YELLOW; Fluid Laterality PERITONEAL; PATH Referral YES
== END 2024-09-22 12:55 | disposition home or self-care (01) ==
LOC: GILAB 11:26
PROVIDERS: Radiology Diagnostic Radiology; PCP Family Medicine; Visit Provider Student in an Organized Health Care Education/Training Program
PROC: (CPT 49082; principal; 2024-09-22 12:00)
DX: K70.31 Alcoholic cirrhosis of liver with ascites (principal)
CPT/HCPCS: 49083; 80503; 87070; 87075; 87205; 89050

== ENCOUNTER 2024-10-06 11:20 | Day surgery (SDC) | payer BC, MEDICAID, SELFPAY ==
--- NOTE | 2024-10-06 11:40 | US_ITS ---
WS: [email or web address] ULTRASOUND-GUIDED THERAPEUTIC AND DIAGNOSTIC PARACENTESIS Procedure, risks, and complications have been explained to the patient. Consent is obtained. Utilizing aseptic technique and 1% buffered lidocaine, a small dermatome was made through which a 5 Kosovan Yueh catheter was inserted. Approximately 5300 ml of clear peritoneal fluid was obtained without difficulty. No complications encountered. US/US paracentesis abd w [id number] IMPRESSION: Uncomplicated paracentesis yielding 5300 ml of peritoneal fluid.
[2024-10-06 11:44] VITALS: BP 133/87; PULSE 85; RESP 18; TEMP 36.6; O2SAT 97; BMI 21.9
[2024-10-06 12:32] LABS: Cyto Order Verification No Order
[2024-10-06 12:37] LABS: Mononuclear #, Pertinoneal Fl 0.074 10^3/uL; Mononuclear %, Pertinoneal Fl 89.100 %; Polynuclear # Cells, Perit 0.009 10^3/uL; Polynuclear % Cells,Perit 10.900 %; RBC Pertioneal Fluid 0 10^3/uL; WBC Peritoneal Fluid 83 /uL
[2024-10-06 13:15] LABS: Appearance, Peritoneal Fluid Hazy (Clear); Color, Peritoneal Fluid Pale Yellow (Pale Yellow); Pathology Referral Yes
== END 2024-10-06 13:00 | disposition home or self-care (01) ==
LOC: GILAB 11:21
PROVIDERS: Radiology Diagnostic Radiology; PCP Family Medicine; Visit Provider Student in an Organized Health Care Education/Training Program
PROC: (CPT 49082; principal; 2024-10-06 12:00)
DX: R18.8 Other ascites (principal)
CPT/HCPCS: 49083; 80503; 89050

== ENCOUNTER → 2024-10-20 11:19 | Day surgery (SDC) | payer BC, MEDICAID, SELFPAY ==
--- NOTE | 2024-10-20 11:34 | US_ITS ---
WS: [id number] ULTRASOUND-GUIDED THERAPEUTIC AND DIAGNOSTIC PARACENTESIS Procedure, risks, and complications have been explained to the patient. Consent is obtained. Utilizing aseptic technique and 1% buffered lidocaine, a small dermatome was made through which a 5 Indonesian Yueh catheter was inserted. Approximately 5700 ml of clear peritoneal fluid was obtained without difficulty. No complications encountered. US/US paracentesis abd w [id number] IMPRESSION: Uncomplicated paracentesis yielding 5700 ml of peritoneal fluid.
[2024-10-20 13:09] LABS: Cyto Order Verification No Order
[2024-10-20 13:27] LABS: Appearance, Peritoneal Fluid Cloudy (Clear); Color, Peritoneal Fluid Pale Yellow (Pale Yellow); Mononuclear #, Pertinoneal Fl 0.084 10^3/uL; Mononuclear %, Pertinoneal Fl 84.900 %; Polynuclear # Cells, Perit 0.015 10^3/uL; Polynuclear % Cells,Perit 15.100 %; RBC Pertioneal Fluid 0 10^3/uL; WBC Peritoneal Fluid 99 /uL
[2024-10-20 13:29] LABS: Pathology Referral Yes
== END ==
LOC: GILAB 11:20
PROVIDERS: Radiology Diagnostic Radiology; PCP Family Medicine; Visit Provider Student in an Organized Health Care Education/Training Program
PROC: (CPT 49082; principal; 2024-10-20 12:00)
DX: K74.60 Unspecified cirrhosis of liver (principal); R18.8 Other ascites
CPT/HCPCS: 49083; 80503; 89050

== ENCOUNTER 2024-11-10 11:19 | Day surgery (SDC) | payer BC, MEDICAID, SELFPAY ==
[2024-11-10 11:32] VITALS: BP 133/83; PULSE 92; RESP 17; TEMP 36.5; O2SAT 97; BMI 21.4
--- NOTE | 2024-11-10 11:36 | US_ITS ---
WS: [id number] ULTRASOUND-GUIDED PARACENTESIS CLINICAL INFORMATION: Alcoholic cirrhoisis of liver with ascites COMPARISON: None. Procedure Informed consent: The risks, benefits, and alternatives of the procedure were discussed with the patient. Verbal and written consent was obtained. Timeout: A timeout was performed to confirm the correct patient, procedure, and site. Preparation: A suitable skin site was identified. The patient was prepped and draped in usual sterile fashion. Lidocaine 1% was used for local anesthesia. Catheter: 4 Nepali One-step Yueh catheter. Side: RIGHT lower quadrant. Fluid Volume: 4850 ml Color: Clear yellow DISPOSITION: Discarded safely. Complications: None. Patient disposition: Discharged from the department in stable condition. US/US paracentesis abd w [id number] IMPRESSION: Uncomplicated ultrasound-guided paracentesis. Removal of 4850 cc
[2024-11-10 13:05] LABS: Cyto Order Verification No Order
[2024-11-10 13:06] LABS: Mononuclear #, Pertinoneal Fl 0.093 10^3/uL; Mononuclear %, Pertinoneal Fl 88.600 %; Polynuclear # Cells, Perit 0.012 10^3/uL; Polynuclear % Cells,Perit 11.400 %; RBC Pertioneal Fluid 0 10^3/uL; WBC Peritoneal Fluid 105 /uL
[2024-11-10 13:09] LABS: Appearance, Peritoneal Fluid Cloudy (Clear); Color, Peritoneal Fluid Pale Yellow (Pale Yellow); Pathology Referral Yes
== END 2024-11-10 12:34 | disposition home or self-care (01) ==
LOC: GILAB 11:20
PROVIDERS: Radiology Neuroradiology; PCP Family Medicine; Visit Provider Student in an Organized Health Care Education/Training Program
PROC: (CPT 49082; principal; 2024-11-10 12:00)
DX: K70.31 Alcoholic cirrhosis of liver with ascites (principal)
CPT/HCPCS: 49083; 80503; 89050

== ENCOUNTER 2024-12-01 11:03 | Day surgery (SDC) | payer BC, MEDICAID, SELFPAY ==
[2024-12-01 11:13] VITALS: BP 134/87; PULSE 87; RESP 16; TEMP 36.6; O2SAT 97
--- NOTE | 2024-12-01 11:42 | US_ITS ---
WS: [id number] ULTRASOUND-GUIDED THERAPEUTIC AND DIAGNOSTIC PARACENTESIS Procedure, risks, and complications have been explained to the patient. Consent is obtained. Utilizing aseptic technique and 1% buffered lidocaine, a small dermatome was made through which a 5 [place]ese Yueh catheter was inserted. Approximately 4300 ml of clear yellow peritoneal fluid was obtained without difficulty. No complications encountered. US/US paracentesis abd w [id number] IMPRESSION: Uncomplicated paracentesis yielding 4300 ml of peritoneal fluid.
[2024-12-01 12:22] LABS: Color, Peritoneal Fluid Yellow (Pale Yellow); Cyto Order Verification No Order
[2024-12-01 12:23] LABS: Appearance, Peritoneal Fluid Hazy (Clear); Pathology Referral Yes
[2024-12-01 12:27] LABS: Mononuclear #, Pertinoneal Fl 0.128 10^3/uL; Mononuclear %, Pertinoneal Fl 91.400 %; Polynuclear # Cells, Perit 0.012 10^3/uL; Polynuclear % Cells,Perit 8.600 %; RBC Pertioneal Fluid 0 10^3/uL; WBC Peritoneal Fluid 140 /uL
== END 2024-12-01 12:34 | disposition home or self-care (01) ==
LOC: GILAB 11:03
PROVIDERS: Radiology Diagnostic Radiology; PCP Family Medicine; Visit Provider Student in an Organized Health Care Education/Training Program
PROC: (CPT 49082; principal; 2024-12-01 12:00)
DX: R18.8 Other ascites (principal)
CPT/HCPCS: 49083; 80503; 87070; 87075; 87205; 89050

== ENCOUNTER 2024-12-15 11:34 | Day surgery (SDC) | payer BC, MEDICAID, SELFPAY ==
[2024-12-15 11:59] VITALS: BP 132/83; PULSE 88; RESP 18; TEMP 37.1; O2SAT 98; BMI 21.9
--- NOTE | 2024-12-15 12:03 | US_ITS ---
WS: [id number] ULTRASOUND-GUIDED THERAPEUTIC PARACENTESIS Procedure, risks, and complications have been explained to the patient. Consent is obtained. Utilizing aseptic technique and 1% buffered lidocaine, a small dermatome was made through which a 5 Urdu Yueh catheter was inserted. Approximately 3800 ml of clear peritoneal fluid was obtained without difficulty. No complications encountered. Specimen collected for analysis. US/US paracentesis abd w [id number] IMPRESSION: Uncomplicated paracentesis yielding 3800 ml of peritoneal fluid.
[2024-12-15 13:08] LABS: Appearance, Peritoneal Fluid Cloudy (Clear); Color, Peritoneal Fluid Pale Yellow (Pale Yellow); Pathology Referral Yes
[2024-12-15 13:09] LABS: Cyto Order Verification No Order
[2024-12-15 13:12] LABS: Mononuclear #, Pertinoneal Fl 0.002 10^3/uL; Mononuclear %, Pertinoneal Fl 100.000 %; Polynuclear # Cells, Perit 0.000 10^3/uL; Polynuclear % Cells,Perit 0.000 %; RBC Pertioneal Fluid 0 10^3/uL; WBC Peritoneal Fluid 2 /uL
== END 2024-12-15 13:00 | disposition home or self-care (01) ==
LOC: GILAB 11:34
PROVIDERS: Radiology Diagnostic Radiology; PCP Family Medicine; Visit Provider Student in an Organized Health Care Education/Training Program
PROC: (CPT 49082; principal; 2024-12-15 12:00)
DX: K70.30 Alcoholic cirrhosis of liver without ascites (principal)
CPT/HCPCS: 49083; 80503; 89050

== ENCOUNTER → 2024-12-29 11:30 | Day surgery (SDC) | payer BC, MEDICAID, SELFPAY ==
--- NOTE | 2024-12-29 11:43 | US_ITS ---
WS: [id number] ULTRASOUND-GUIDED THERAPEUTIC PARACENTESIS Procedure, risks, and complications have been explained to the patient. Consent is obtained. Utilizing aseptic technique and 1% buffered lidocaine, a small dermatome was made through which a 5 [place]an Yueh catheter was inserted. Approximately 4500 ml of clear peritoneal fluid was obtained without difficulty. No complications encountered. US/US paracentesis abd w [id number] IMPRESSION: Uncomplicated paracentesis yielding 4500 ml of peritoneal fluid.
[2024-12-29 11:55] VITALS: BP 127/80; PULSE 90; RESP 18; TEMP 36.3; O2SAT 95; BMI 21.9
[2024-12-29 12:26] VITALS: BP 117/68; PULSE 88; RESP 18; O2SAT 99
[2024-12-29 12:28] LABS: Body Fluid Polynuclear #Cells 0.009; Monocytes # Body Fluid 0.089; Mononuclear WBC Body Fluid % 90.800 %; Polynuclear WBC Body Fluid % 9.200 %
[2024-12-29 12:29] LABS: Cyto Order Verification No Order
[2024-12-29 12:30] LABS: Apprearance, Body Fluid CLEAR; Color, Body Fluid PALE YELLOW; Fluid Laterality PERITONEAL FLUID
== END ==
LOC: GILAB 11:31
PROVIDERS: Radiology Diagnostic Radiology; PCP Family Medicine; Visit Provider Student in an Organized Health Care Education/Training Program
PROC: (CPT 49082; principal; 2024-12-29 12:00)
DX: K70.31 Alcoholic cirrhosis of liver with ascites (principal)
CPT/HCPCS: 49083; 80503; 89050

== ENCOUNTER 2025-01-19 11:23 | Day surgery (SDC) | payer BC, MEDICAID, SELFPAY ==
[2025-01-19 11:39] VITALS: BP 126/73; PULSE 89; RESP 16; TEMP 36.2; O2SAT 100; BMI 21.9
--- NOTE | 2025-01-19 11:42 | US_ITS ---
WS: [email or web address] ULTRASOUND-GUIDED PARACENTESIS CLINICAL INFORMATION: alcoholic cirrhosis of the liver with ascites COMPARISON: None. Procedure Informed consent: The risks, benefits, and alternatives of the procedure were discussed with the patient. Verbal and written consent was obtained. Timeout: A timeout was performed to confirm the correct patient, procedure, and site. Preparation: A suitable skin site was identified. The patient was prepped and draped in usual sterile fashion. Lidocaine 1% was used for local anesthesia. Catheter: 4 [place] One-step [place] catheter. Side: RIGHT lower quadrant. Fluid Volume: 4200 ml Color: Clear yellow DISPOSITION: Discarded safely. Complications: None. Patient disposition: Discharged from the department in stable condition. US/US paracentesis abd w [id number] IMPRESSION: Uncomplicated ultrasound-guided paracentesis. Removal of clear yellow
[2025-01-19 12:46] LABS: Mononuclear #, Pertinoneal Fl 0.151 10^3/uL; Mononuclear %, Pertinoneal Fl 87.300 %; Polynuclear # Cells, Perit 0.022 10^3/uL; Polynuclear % Cells,Perit 12.700 %; RBC Pertioneal Fluid 0 10^3/uL; WBC Peritoneal Fluid 173 /uL
[2025-01-19 12:58] LABS: Cyto Order Verification No Order
[2025-01-19 13:06] LABS: Appearance, Peritoneal Fluid Clear (Clear); Color, Peritoneal Fluid Pale Yellow (Pale Yellow); Pathology Referral Yes
== END 2025-01-19 12:48 | disposition home or self-care (01) ==
LOC: GILAB 11:25
PROVIDERS: Radiology Neuroradiology; PCP Family Medicine; Visit Provider Student in an Organized Health Care Education/Training Program
PROC: (CPT 49082; principal; 2025-01-19 13:00)
DX: K70.31 Alcoholic cirrhosis of liver with ascites (principal)
CPT/HCPCS: 49083; 80503; 87070; 87075; 87205; 89050

== ENCOUNTER → 2025-01-26 11:21 | Day surgery (SDC) | payer BC, MEDICAID, SELFPAY ==
[2025-01-26 11:30] VITALS: BP 135/72; PULSE 92; RESP 16; TEMP 36.3; O2SAT 95
--- NOTE | 2025-01-26 11:42 | US_ITS ---
WS: [id number] ULTRASOUND-GUIDED THERAPEUTIC PARACENTESIS Procedure, risks, and complications have been explained to the patient. Consent is obtained. Utilizing aseptic technique and 1% buffered lidocaine, a small dermatome was made through which a 5 [place] Yueh catheter was inserted. Approximately 4100 ml of clear peritoneal fluid was obtained without difficulty. No complications encountered. US/US paracentesis abd w [id number] IMPRESSION: Uncomplicated paracentesis yielding 4100 ml of peritoneal fluid.
[2025-01-26 13:31] LABS: Mononuclear #, Pertinoneal Fl 0.082 10^3/uL; Mononuclear %, Pertinoneal Fl 91.100 %; Polynuclear # Cells, Perit 0.008 10^3/uL; Polynuclear % Cells,Perit 8.900 %; RBC Pertioneal Fluid 0 10^3/uL; WBC Peritoneal Fluid 90 /uL
[2025-01-26 13:38] LABS: Appearance, Peritoneal Fluid Clear (Clear); Color, Peritoneal Fluid Yellow (Pale Yellow)
[2025-01-26 13:54] LABS: Cyto Order Verification No Order
== END ==
LOC: GILAB 11:22
PROVIDERS: Radiology Diagnostic Radiology; PCP Family Medicine; Visit Provider Student in an Organized Health Care Education/Training Program
PROC: (CPT 49082; principal; 2025-01-26 12:00)
DX: K74.60 Unspecified cirrhosis of liver (principal); R18.8 Other ascites
CPT/HCPCS: 49083; 80503; 89050

== ENCOUNTER → 2025-02-06 11:05 | Day surgery (SDC) | payer BC, MEDICAID, SELFPAY ==
[2025-02-06 11:25] VITALS: BP 168/99; PULSE 89; RESP 18; TEMP 36.9; O2SAT 96
--- NOTE | 2025-02-06 11:30 | US_ITS ---
WS: [id number] ULTRASOUND-GUIDED THERAPEUTIC PARACENTESIS Procedure, risks, and complications have been explained to the patient. Consent is obtained. Utilizing aseptic technique and 1% buffered lidocaine, a small dermatome was made through which a 5 [place] Yueh catheter was inserted. Approximately 4400 ml of clear peritoneal fluid was obtained without difficulty. No complications encountered. US/US paracentesis abd w [id number] IMPRESSION: Uncomplicated paracentesis yielding 4400 ml of peritoneal fluid.
[2025-02-06 12:05] VITALS: BMI 21.9
[2025-02-06 12:38] LABS: Mononuclear #, Pertinoneal Fl 0.075 10^3/uL; Mononuclear %, Pertinoneal Fl 91.400 %; Polynuclear # Cells, Perit 0.007 10^3/uL; Polynuclear % Cells,Perit 8.600 %; RBC Pertioneal Fluid 0 10^3/uL; WBC Peritoneal Fluid 82 /uL
[2025-02-06 12:48] LABS: Appearance, Peritoneal Fluid Hazy (Clear); Color, Peritoneal Fluid Yellow (Pale Yellow); Cyto Order Verification No Order
== END ==
LOC: GILAB 11:05
PROVIDERS: Radiology Diagnostic Radiology; PCP Family Medicine; Visit Provider Student in an Organized Health Care Education/Training Program
PROC: (CPT 49082; principal; 2025-02-06 12:00)
DX: K70.31 Alcoholic cirrhosis of liver with ascites (principal)
CPT/HCPCS: 49083; 80503; 89050; A9270